=== PATIENT | male | born 1980 | race Caucasian/White ===

== ENCOUNTER 2021-06-25 19:46 | Emergency (ER) | payer OTHER, SELFPAY ==
[2021-06-25 19:52] VITALS: BP 139/102; PULSE 112; RESP 14; TEMP 36.9; O2SAT 97
--- NOTE | 2021-06-25 19:56 | ED.NAVMDI ---
HPI - Nausea/Vomiting/Diarrhea General Chief complaint: Nausea/Vomiting/Diarrhea Stated complaint: Vomiting Time Seen by Provider: 06/25/21 19:58 Source: patient and RN notes reviewed Mode of arrival: ambulatory Limitations: no limitations History of Present Illness HPI Narrative: 40-year-old male presents with concern for acute nausea, vomiting, diarrhea that started several hours ago. Reports he had a exam which is this morning he says could have made him sick. However he also reports he has had 2 family members with similar symptoms in the past several days. He denies abdominal pain, reports abdominal cramping. He MD elicited complaint: nausea, vomiting and diarrhea Related Data Home Medications Medication Instructions Recorded Confirmed alprazolam 0.5 mg PO BID 06/25/21 06/25/21 clonidine HCl 0.3 mg PO DAILY 06/25/21 06/25/21 paroxetine HCl [Paxil] 40 mg PO QAM 06/25/21 06/25/21 quetiapine 75 mg PO HS 06/25/21 06/25/21 risperidone [Risperdal] 0.5 mg PO HS 06/25/21 06/25/21 zolpidem 10 mg PO HS 06/25/21 06/25/21 Allergies Allergy/AdvReac Type Severity Reaction Status Date / Time BUPROPION HCL Allergy Unknown Hives / Uncoded 06/25/21 19:59 Red Face NAPROXEN SODIUM AdvReac Unknown Abdominal Uncoded 06/25/21 19:59 Pain Review of Systems Review of Systems: CONSTITUTIONAL: Denies malaise, chills, sweats, or fever. ENT: Denies rhinorrhea, congestion, sinus pain, otalgia or sore throat. CARDIOVASCULAR: Denies chest pain, palpitations, or edema. RESPIRATORY: Denies cough or dyspnea. GASTROINTESTINAL: Denies abdominal pain. Report nausea, vomiting, diarrhea GENITOURINARY: Denies dysuria or hematuria. MUSCULOSKELETAL: Denies myalgia. NEUROLOGIC: Denies headache. All systems reviewed & are unremarkable except as noted in HPI and below PMFSH Comments At time of signature, agree with nursing past medical, surgical, social and family history. There is no relevant family history pertinent to the presenting complaint Exam Narrative: GENERAL: Well-appearing, well-nourished, and in no acute distress. HEAD: Normocephalic, atraumatic. EYES: PERRLA, conjunctivae clear, and EOMI. ENT: Mucous membranes moist. NECK: Supple. No lymphadenopathy CHEST: Speaks in full sentences. No respiratory distress. HEART: Regular rate and rhythm. ABDOMEN: Soft, flat, nondistended. No guarding, rebound tenderness, or rigid. No pulsatilla masses. Bowel sounds present in all four quadrants. No organomegaly. Negative Sandoval?s sign. No periumbilical tenderness. No Supra public tenderness or distension. Good femoral pulses bilaterally. No hernia noted. No scars or surface trauma. SKIN: Warm, dry, no rash. NEURO: Alert and oriented x3. PSYCH: Normal mood and affect Course Course Emergency Course: Patient is aware of diagnosis, understands and agrees to treatment plan. Anticipatory guidance given. Patient agrees to follow-up as directed and is aware of reasons to seek care at the emergency department. Portions of this record may have been created with voice recognition software Level of Care: Express Care Visit Vital Signs Vital signs: Reviewed. MDM - Nausea/Vomiting/Diarrhea MDM Narrative Medical decision making narrative: No evidence of pancreatitis, AAA, cholecystitis, choledocholithiasis, cholangitis, mesenteric ischemia, small bowel obstruction, diverticulitis, colitis, appendicitis, or pelvic etiology such as ovarian/testicular torsion, TOA, or ectopic . Patient has no history of peptic ulcer, H. pylori, chronic aspirin NSAID or corticosteroid use, chronic alcohol use, no history of inflammatory bowel disease, no history of active abdominal infection or malignancy. Patient has no history of hernia or intra-abdominal surgeries, patient denies absence of flatus, constipation, melena, hematemesis. Patient denies post-prandial pain. No pain-out of proportion. Exam findings show no acute concerns or changes; patient is non-toxi
[2021-06-25 20:01] VITALS: BP 139/102; PULSE 112; RESP 14; TEMP 36.9; O2SAT 97
== END 2021-06-25 20:08 | disposition home or self-care (01) ==
PROVIDERS: Emergency Provider Nurse Practitioner; PCP Family Medicine
DX: R11.2 Nausea with vomiting, unspecified (principal); R19.7 Diarrhea, unspecified
CPT/HCPCS: 99203; G0463

== ENCOUNTER 2021-06-28 17:00 | Emergency (ER) | payer OTHER, SELFPAY ==
[2021-06-28 17:05] VITALS: BP 145/82; PULSE 86; RESP 18; TEMP 37.2; O2SAT 100
--- NOTE | 2021-06-28 17:05 | ED.NAVMDI ---
HPI - Nausea/Vomiting/Diarrhea General Chief complaint: Nausea/Vomiting/Diarrhea Stated complaint: Diarrhea/Abdominal Pain Time Seen by Provider: 06/28/21 17:00 Source: patient and RN notes reviewed History of Present Illness HPI Narrative: Patient is a 40-year-old male who presents the urgent care with complaints of abdominal pain and persistent diarrhea. Patient was seen at our facility on Friday and states that he was told by the provider to come back for antibiotics if his diarrhea did not stop . It was noted on patient's discharge instructions to go to the hospital for further evaluation if symptoms did not improve. Patient states has been taking the Zofran for the nausea and vomiting which is since resolved. Patient denies of any fevers. Denies of any known blood in the stool. Denies of any abdominal history. Patient is requesting a work note. 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 Patient states that he ate an egg and cheese breakfast burrito. Patient states that his symptoms have improved however he is still had approximately 6-8 loose stools over the last 24 hours. Patient states that the diarrhea was explosive before and has gotten much better . No other acute complaints. No acute distress noted. Patient read the plan of care. Some parts of this dictation were generated by voice recognition software and may contain typographical and/or grammatical inaccuracies. Related Data Home Medications Medication Instructions Recorded Confirmed alprazolam 0.5 mg PO BID 06/25/21 06/28/21 clonidine HCl 0.3 mg PO DAILY 06/25/21 06/28/21 paroxetine HCl [Paxil] 40 mg PO QAM 06/25/21 06/28/21 quetiapine 75 mg PO HS 06/25/21 06/28/21 risperidone [Risperdal] 0.5 mg PO HS 06/25/21 06/28/21 zolpidem 10 mg PO HS 06/25/21 06/28/21 Allergies Allergy/AdvReac Type Severity Reaction Status Date / Time BUPROPION HCL Allergy Unknown Hives / Uncoded 06/28/21 17:17 Red Face NAPROXEN SODIUM AdvReac Unknown Abdominal Uncoded 06/28/21 17:17 Pain Review of Systems Review of Systems: CONSTITUTIONAL: Denies fever, chills, or sweats. EYES: Denies visual changes, redness, or discharge. ENT: Denies rhinorrhea, congestion, sore throat, or otalgia. CARDIOVASCULAR: Denies chest pain, palpitations, or edema. RESPIRATORY: Denies cough or dyspnea. GASTROINTESTINAL: Reports of abdominal pain, intermittent nausea, and diarrhea GENITOURINARY: Denies dysuria or hematuria. SKIN: Denies rash or itching. MUSCULOSKELETAL: Denies back pain, joint pain, or myalgia. NEUROLOGIC: Denies headache, numbness, or weakness. All other systems reviewed are negative, except as documented in HPI. PMFSH Comments At the time of my signature, I reviewed and agree with the nursing past medical, surgical, social, and family history. There is no relevant family history pertinent to the patient complaint. Exam Narrative: GENERAL: This is a well-nourished, well-developed patient, in no apparent distress. HEAD: normocephalic, atraumatic. EYES: PERRL. Sclera clear/white. Vision is grossly intact. EARS: External ears normal NOSE: External nose normal with no obvious nasal discharge, nares without redness, no rhinorrhea. THROAT: Mucous membranes moist NECK: Neck supple CARDIOVASCULAR: Regular rate and rhythm without murmurs, gallops, or rubs. RESPIRATORY: Clear to auscultation. Breath sounds equal bilaterally. No wheezes, rales, or rhonchi. GASTROINTESTINAL: Abdomen soft, mild left upper quadrant tenderness, nondistended. Negative obturator. Negative Sandoval sign. No splenomegaly. Hyperactive bowel sounds. SKIN: warm, intact with no suspicious lesions or rash, good texture and turgor. NEURO: awake, alert, and oriented to person, place and time. There were no obvious focal neurologic abnormalities. EXTREMITIES: No clubbing, cyanosis, or edema. Course Course Level of Care: Cole Mcintyre
== END 2021-06-28 17:30 | disposition home or self-care (01) ==
PROVIDERS: Emergency Provider Nurse Practitioner Family; PCP Family Medicine
DX: R19.7 Diarrhea, unspecified (principal)
CPT/HCPCS: 99213; G0463

== ENCOUNTER 2023-01-08 13:25 | Emergency (ER) | payer OTHER, SELFPAY ==
[2023-01-08 13:30] VITALS: BP 148/97; PULSE 89; RESP 20; TEMP 36.8; O2SAT 99
--- NOTE | 2023-01-08 13:56 | ED.URI ---
HPI - URI/Sore Throat General Chief Complaint: Upper Respiratory Infection Stated Complaint: headache/fever/aches Time Seen by Provider: 01/08/23 13:40 Source: patient Mode of arrival: ambulatory Limitations: no limitations History of Present Illness HPI Narrative: Mr. Holguin is a 42-year-old male patient presenting to the clinic today with complaints of headache, fever, chills, body aches aches, sore throat, and congestion times 2 days. He reports his symptoms started on Friday. No known exposure to anybody with COVID, flu, or strep. 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 Patient denies any fever, chills, rash, headache, visual changes, dizziness, cough, shortness of breath, chest pain, palpitations, nausea, vomiting, diarrhea, constipation, abdominal pain, or any urinary issues. PMFSH Comments At the time of my signature, I reviewed and agree with the nursing past medical, surgical, social, and family history. There is no relevant family history pertinent to the patient complaint. Exam Narrative: General: Well-developed, well nourished, in no apparent distress Head: Normocephalic, atraumatic Eyes: Pupils equally round and reactive to light bilaterally, EOM intact, sclera and conjunctive clear, no discharge, lids normal Ears: TMs intact and congested, ear canals clear, no drainage, grossly hearing normal. Nose: Nares patent, clear nasal discharge, no inflammation, no sinus tenderness. Mouth: Oral pharynx red, swollen, with bilateral tonsillar enlargement without lesions or masses, good dentition, MMM. Neck: Supple, trachea midline, enlargement of anterior cervical nodes, no thyroid masses or goiter palpable. Cardio: Regular rate and rhythm, s1 and s2 normal, no murmur appreciated. Resp: Clear to auscultation bilaterally, no rhonchi, rales, wheezing or rubs Course Course Emergency Course: Portions of this record may have been created with voice recognition software. Level of Care: Express Care Visit Vital Signs Vital signs: Vital Signs Temperature 36.8 C 01/08/23 13:30 Pulse Rate 89 01/08/23 13:30 Respiratory Rate 20 01/08/23 13:30 Blood Pressure 148/97 H 01/08/23 13:30 Pulse Oximetry 99 01/08/23 13:30 Oxygen Delivery Room Air 01/08/23 13:30 Temperature 36.8 C 01/08/23 13:30 Pulse Rate 89 01/08/23 13:30 Respiratory Rate 20 01/08/23 13:30 Blood Pressure 148/97 H 01/08/23 13:30 Pulse Oximetry 99 01/08/23 13:30 Oxygen Delivery Room Air 01/08/23 13:30 Vital signs reviewed MDM - URI/Sore Throat MDM Narrative Medical decision making narrative: At the time of visit patient is resting on the exam table. COVID, influenza, and strep testing were performed. Patient is positive for COVID and strep. Influenza testing was negative. Will send in prescription for amoxicillin. Supportive measures were discussed with the patient regarding COVID and strep and he voiced understanding of the discharge instructions and agrees to treatment plan. Work note was given. Differential Diagnosis Differential diagnosis: Likely upper respiratory infection, otitis media, sinusitis, viral infection, bronchitis, influenza, pharyngitis and other (COVID) Discharge Plan Discharge Clinical Impression: COVID-19, Strep pharyngitis Patient Disposition: Home, Self-Care Condition: Stable Instructions: Antibiotic Form, Strep Throat (ED), COVID-19 (Coronavirus Disease 2019) (ED), How to Recover from COVID-19 at Home (ED) Additional Instructions: Strep screen was positive in the clinic today. COVID test was also positive in the clinic today. Inf
== END 2023-01-08 14:10 | disposition home or self-care (01) ==
PROVIDERS: Emergency Provider Nurse Practitioner Family; PCP Family Medicine
DX: U07.1 COVID-19 (principal); J02.0 Streptococcal pharyngitis
CPT/HCPCS: 87426; 87804; 87880; 99213; C9803; G0463

== ENCOUNTER 2023-12-29 15:06 | Outpatient (CLI) | payer OTHER, SELFPAY ==
[2023-12-29 18:50] LABS: Hemoglobin 14.7 g/dL (14.0-18.0); Mean Corpuscular HGB Conc 33.4 g/dl (32-36); Mean Corpuscular Hemoglobin 29.5 pg (26-34); Mean Corpuscular Volume 88.2 fl (80-100); Platelet Count Result 271 k/mm3 (150-375); Red Blood Count 4.99 M/mm3 (4.6-6.20); Red Cell Distribution Width 13.3 % (11.5-14.5)
[2023-12-29 19:34] LABS: Alanine Aminotransferase 44 U/L (6-50); Albumin Level 4.6 g/dL (3.5-5.1); Alkaline Phosphatase 112 U/L (38-126); Anion Gap 11 mmol/L (4-12); Aspartate Amino Transferase 80 U/L (17-59); Bilirubin,Total 0.7 mg/dL (0.2-1.3); Blood Urea Nitrogen 17 mg/dL (9-20); Calcium 9.6 mg/dL (8.4-10.2); Carbon Dioxide 30 mmol/L (22-30); Chloride 101 mmol/L (98-107); Cholesterol 105 mg/dL (0-200); Estimated Glomerular Filt Rate > 60; Glucose 123 mg/dL (65-110); HDL Direct 42 mg/dL; Potassium 3.5 mmol/L (3.4-5.0); Sodium 142 mmol/L (137-145); Triglycerides 84 mg/dL (<150)
[2023-12-29 19:41] LABS: LDL Cholesterol Direct 34 mg/dL
[2023-12-29 19:45] LABS: Vitamin D 25 Hydroxy 31.4 ng/mL
== END 2023-12-29 15:07 | disposition home or self-care (01) ==
PROVIDERS: PCP Nurse Practitioner Adult Health; Visit Provider Nurse Practitioner Adult Health
DX: Z13.9 Encounter for screening, unspecified (principal); E55.9 Vitamin D deficiency, unspecified
CPT/HCPCS: 36415; 80053; 80061; 82306; 84443; 85027

== ENCOUNTER 2024-01-21 14:06 | Outpatient (CLI) | payer OTHER, SELFPAY ==
[2024-01-21 20:44] LABS: Hemoglobin A1C 5.2 % (<5.7)
== END 2024-01-21 14:07 | disposition home or self-care (01) ==
LOC: ANHBWCLAB 14:08
PROVIDERS: PCP Nurse Practitioner Adult Health; Visit Provider Nurse Practitioner Adult Health
DX: R73.9 Hyperglycemia, unspecified (principal)
CPT/HCPCS: 36415; 83036

== ENCOUNTER 2024-03-16 13:34 | Outpatient (CLI) | payer OTHER, SELFPAY | END 2024-03-16 13:35 | disposition home or self-care (01) | PROVIDERS: PCP Nurse Practitioner Adult Health; Visit Provider Nurse Practitioner Adult Health | DX: I63.9 Cerebral infarction, unspecified (principal) | CPT/HCPCS: 36415; 81241; 81291 ==

== ENCOUNTER 2024-03-24 15:57 | Outpatient (CLI) | payer OTHER, SELFPAY ==
[2024-03-25 13:18] LABS: Homocysteine 11.1 umol/L (<11.4)
== END 2024-03-24 15:58 | disposition home or self-care (01) ==
LOC: ANHBWCLAB 15:58
PROVIDERS: PCP Nurse Practitioner Adult Health; Visit Provider Nurse Practitioner Adult Health
DX: Z15.89 Genetic susceptibility to other disease (principal)
CPT/HCPCS: 36415; 83090

== ENCOUNTER 2024-06-03 11:27 | Outpatient (CLI) | payer OTHER, SELFPAY ==
--- OUTSIDE RECORDS SUMMARY | 2024-06-03 12:26 | XMS_ITS | Clinical Summary ---
Author Organization [facility] Address [address] [address] Phone Care Team Providers Care Shipyard Painting Supervisor Name Role Phone Eyad Morin MD Primary Care Provider [phone] Allergies Active Allergy Reactions Criticality Noted Date Comments Bupropion Hcl Hives Medium 05/09/2016 Medications omeprazole (PRILOSEC) 20 MG CAPSULE DELAYED RELEASE Take 1 Cap by mouth daily. 90 Cap 3 05/09/19 17 Active Additional Information Patient not taking.Reported on 05/16/2021 PARoxetine (PAXIL) 40 MG Tablet Take 1 Tab by mouth daily. 90 Tab 0 07/27/19 17 Active ALPRAZolam (XANAX) 0.25 MG Tablet Take 1 Tab by mouth daily as needed. 30 Tab 0 08/19/19 17 Active fluticasone (FLONASE) 50 MCG/ACT Suspension 1-2 Sprays by Nasal route daily. 1-2 sprays each nostril daily for nasal congestion and allergies. 1 Bottle 3 08/06/19 17 Active Additional Information Patient not taking.Reported on 05/16/2021 Levocetirizine Dihydrochloride (XYZAL) 5 MG Tablet Take 1 Tab by mouth daily. 90 Tab 3 08/06/19 17 Active ibuprofen (MOTRIN) 800 MG Tablet Take 1 Tab by mouth every 8 hours. 30 Tab 0 10/07/19 17 Active HYDROcodone-acetami nophen (NORCO) 5-325 MG Tablet Take 1-2 Tabs by mouth every 4 hours as needed for Pain. 20 Tab 0 10/07/19 17 Active Additional Information Patient not taking.Reported on 05/16/2021 cloNIDine (CATAPRES) 0.3 MG Tablet Take 0.3 mg by mouth. 09/09/19 20 Active QUEtiapine (SEROquel) 25 MG Tablet Take 75 mg by mouth. 02/07/20 18 Active risperiDONE (RISPERDAL) 0.5 MG Tablet 05/14/19 22 Active zolpidem (AMBIEN) 10 MG Tablet 02/23/20 21 Active traMADol (ULTRAM) 50 MG TabletIndications:L ow back pain with left-sided sciatica Take 1 Tablet by mouth every 8 hours as needed for Moderate or more severe pain. 12 Tablet 04/29/20 23 Active Active Problems Problem Noted Date Diagnosed Date Elevated LFTs 06/09/2017 Prolonged posttraumatic stress disorder 10/18/19 17 Panic attack as reaction to stress 08/12/2016 Abnormal drug screen 08/06/2016 Overview (08/06/2016): Benzo prescribed, benzo undetected Depression 05/17/2016 Anxiety 05/09/2016 Insomnia 05/09/2016 Kidney stones 05/09/2016 Recurrent pain of right knee 05/09/2016 Overview (05/09/2016): Dr Wayne History of steroid shots Gastroesophageal reflux disease without esophagi tis 05/09/2016 Family History Medical History Relation Name Comments No Known Problems Father Thyroid Disease Mother No Known Problems Sister Relation Name Status Comments Father Alive Mother Alive Sister Alive Social History Tobacco Use Types Packs/Day Years Used Date Smoking Tobacco: Former Smokeless Tobacco: Current Chew Tobacco Cessation:Ready to Q uit: Not Asked; Counseling Given: Not Answered Alcohol Use Standard Drinks/Week Comments No 0 (1 standard drink = 0.6 oz pur e alcohol) Personal choice Sexually Active Control Partners Comments Not Currently Surgical Female vascetomy Sex and Gender Information Value Date Recorded Sex Assigned at Not on file Legal Sex Male 7:41 PM CDT Gender Identity Not on file Sexual Orientation Not on file Last Filed Vital Signs Vital Sign Reading Time Taken Comments Blood Pressure 116/76 04/29/2023 4:06 PM SENIOR FACILITIES MANAGER Pulse 88 04/29/2023 4:06 PM SENIOR FACILITIES MANAGER Temperature 36.4 ??C (97.6 ??F) 04/29/2023 11:[address] Respiratory Rate 18 04/29/2023 4:06 PM SENIOR FACILITIES MANAGER Oxygen Saturation 99% 04/29/2023 4:06 PM SENIOR FACILITIES MANAGER Inhaled Oxygen Concentration - - Weight 76.2 kg (168 lb) 04/29/2023 11:54 AM SENIOR FACILITIES MANAGER Height 177.8 cm (5' 10 ) 04/29/2023 11:54 AM SENIOR FACILITIES MANAGER Body Mass Index 24.11 04/29/2023 11:54 AM SENIOR FACILITIES MANAGER Plan of Treatment Health Maintenance Due Date Last Done Comments Hepatitis C Virus (HCV) Screening 1980 Hepatitis B Immunization (1 of 3 - 19+ 3-dose series) 07/12/1999 Influenza Immunization (#1) 01/04/202403/05, 03/19/2018, 02/11/2014, Additional history exists SARS-COV-2 Immunization ( season) 2024 Respiratory Syncytial Virus (RSV) Immunization (Adult) (1 - 1-dose 75+ series) 07/12/2055 TdaP Immunization Completed 12/03/2009 Meningococcal Immunization (ACWY) Aged Out No longer eligible based on patient's age to complete this topic Pneumococcal Immunization Combined Aged Out No longer eligible based on patient's age to complete this topic Rotavirus Immunization Aged Out No lo nger eligible based on patient's age to complete this topic Insurance [address] [place] [address] Care Teams Shipyard Painting Supervisor Relationship Specialty Start Date End Date Eyad Morin MD [address] [facility] [address] [address] [place] [id number] PCP - General Wind Tunnel Technician 04/29/23
--- OUTSIDE RECORDS SUMMARY | 2024-06-03 12:27 | XMS_ITS | Clinical Summary ---
Author Organization [facility]an Roman Address [address] [place] [address] Care Team Providers Care Guest Relations Representative Name Role Phone Unavailable Primary Care Provider Unavailabl e Allergies Active Allergy Reactions Criticality Noted Date Comments Bupropion Nausea and Vomiting,Blood Disorder Medium 0 06/03/2024 Naproxen Sodium Nausea and Vomiting,Blood Disorder Medium 06/03/2024 Medications ALPRAZolam (XANAX) 0.5 mg tablet Take 0.5 mg by mouth 1 time daily as needed for Anxiety. 05/13/2024 Active aspirin (ECOTRIN EC) 81 mg Tablet, Delayed Release (E.C.) Take 1 Tablet by mouth daily. 04/12/2024 Active Cholecalciferol , Vitamin D3, (VITAMIN D3) 10 mcg (400 unit) capsule Take 400 Units by mouth daily. Active ondansetron (ZOFRAN ODT) 8 mg Tablet, Rapid Dissolve Take 8 mg by mouth every 8 hours as needed for Nausea/Emesi s. 04/12/2024 Active traMADoL (ULTRAM) 50 mg tablet Take 50 mg by mouth 2 times daily as needed for Pain. 05/22/2024 Active zolpidem (AMBIEN) 10 mg tablet Take 10 mg by mouth nightly as needed for Insomnia. 05/30/2024 Active ticagrelor (BRILINTA) 60 mg Tablet Take 60 mg by mouth one time only. Active Active Problems No known active problems Encounters Date Type Department Care Team Description 06/03/2024 10:30 AM WOOD MILLER Office Visit [facility] Oncology and Hematology - [place] [address] [place] [address] Issa Porras MD Secondary hypercoagulable state (Primary Dx) from Last 3 Months Family History Medical History Relation Name Comments No Known Problems Child 1 No Known Problems Child 2 No Known Problems Father No Known Problems Mother No Known Problems Sister Relation Name Status Comments Child 1 Alive Child 2 Alive Father Alive Mother Alive Sister Alive Social History Tobacco Use Types Packs/Day Years Used Date Smoking Tobacco: Never Smokeless Tobacco: Current Chew Alcohol Use Standard Drinks/Week Comments Never 0 (1 standard drink = 0.6 oz pur e alcohol) Sex and Gender Information Value Date Recorded Sex Assigned at Not on file Legal Sex Male 12:50 PM WOOD MILLER Gender Identity Not on file Sexual Orientation Not on file Last Filed Vital Signs Vital Sign Reading Time Taken Comments Blood Pressure 138/96 06/03/2024 10:34 AM WOOD MILLER Pulse 72 06/03/2024 10:30 AM WOOD MILLER Temperature 36.2 ??C (97.2 ??F) 06/03/2024 10:[address] Respiratory Rate 17 06/03/2024 10:30 AM WOOD MILLER Oxygen Saturation 97% 06/03/2024 10:30 AM WOOD MILLER Inhaled Oxygen Concentration - - Weight 73.3 kg (161 lb 9.6 oz) 06/03/2024 10:30 AM WOOD MILLER Height 177.8 cm (5' 10 ) 06/03/2024 10:30 AM WOOD MILLER Body Mass Index 23.19 06/03/2024 10:30 AM WOOD MILLER Plan of Treatment Upcoming Encounters Date Type Department Care Team (Late st Contact Info) Description 06/17/2024 4:30 PM WOOD MILLER Telephone Check Up [facility] Oncology and Hematology - [place] [address] [facility] [address] [place] [address] Issa Porras MD [address] [facility] [address] [place] [address] Health Maintenance Due Date Last Done Comments HEPATITIS B VACCINES (1 of 3 - 19+ 3-dose series) 07/12/1999 DTAP/TDAP/TD VACCINES (2 - T d or Tdap) 12/04/2019 12/03/2009 INFLUENZA VACCINE (#1) 2023 8, 02/11/2014 Preventative Visit- Commercial 05/05/2024 HPV VACCINES Aged Out No longer eligi ble based on patient's age to complete this topic Insurance [employer] [facility] OPEN ACCESS
--- OUTSIDE RECORDS SUMMARY | 2024-06-03 12:27 | XMS_ITS | Referral Summary ---
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 Monitor Report. ?? INDICATIONS: I61.9 Nontraumatic intracerebral hemorrhage, unspecified. ?? FINDINGS: ?? CONCLUSIONS: 1. Predominant rhythm is normal sinus rhythm with a minimum heart rate of 41 beats per minute in sinus and a maximum heart rate of 152 beats per minute also in sinus. Average heart rate of 65 beats per minute. Total monitoring time of 28 days 4 hours 8 minutes. 2. No prolonged pauses. 3. Rare PACs with 496 PACs amounting to less than 1% of total beats. 4. Rare PVCs with 170 PVCs amounting to less than 1% total beats. 5. There were 5 patient activated events with only 1 associated with feeling tired/fatigued. All noted to be in sinus rhythm ranging in heart rate from 67-102 beats per minute with no significant findings. Electronically Signed By: Dr Cleveland Neff 04/26/2024 2:58:10 PM PRODUCT CONTROLLER Procedure Note Cleveland Neff MD - 04/26/[address] [place] [address] EVENT MONITOR Patient Name: DANTE LOPEZ S : 1980 Study Date: 03/18/2024 1:30:00 PM Gender: M Tech: Ref Provider: VIDYA KELLEY Height(Cm): BSA: Weight(Kg): Order Provider: VIDYA KELLEY - PROCEDURES: Event Report: Event Monitor Report. INDICATIONS: I61.9 Nontraumatic intracerebral hemorrhage, unspecified. FINDINGS: CONCLUSIONS: 1. Predominant rhythm is normal sinus rhythm with a minimum heart rate of41 beats per minute in sinus and a maximum heart rate of 152 beats per minute also insinus. Average heart rate of 65 beats per minute. Total monitoring time of 28 days 4 hours 8 minutes. 2. No prolonged pauses. 3. Rare PACs with 496 PACs amounting to less than 1% of total beats. 4. Rare PVCs with 170 PVCs amounting to less than 1% total beats. 5. There were 5 patient activated events with only 1 associated withfeeling tired/fatigued. All noted to be in sinus rhythm ranging in heart rate from 67-102 beatsper minute with no significant findings. Electronically Signed By: Dr Cleveland Neff 04/26/2024 2:58:10 PM PRODUCT CONTROLLER us Vidya Kelley Jr., MD [facility] PROCEDURES Final Result * MRI Cervical Spine WO Contrast (03/17/2024 3:27 PM PRODUCT CONTROLLER) Anatomical Region Laterality Modality Spine N/A Magnetic Resonan ce 03/17/2024 4:54 PM PRODUCT CONTROLLER Narrative 03/17/2024 5:08 PM PRODUCT CONTROLLER EXAM DESCRIPTION: ?? MRI CERVICAL SPINE WO CONTRAST REASON FOR STUDY: ?? Myelopathy, acute, cervical spine, To rule out cervical stenosis ?? Left side numbness yesterday Hx of bonita 03/04/2024 ?? TECHNIQUE: Sagittal and Axial imaging includes T1, T2, STIR and gradient echo sequences. ? COMPARISON: ?? Cervical spine MRI 04/18/2017 CTA head and neck 03/24/2024 FINDINGS: ALIGNMENT: ?? Unchanged partial straightening of the cervical lordosis. VERTEBRAE: ?? Vertebral body height is maintained. ??Marrow signal is within normal limits for age. DISCS: ?? Disc height loss at several levels most apparent at C3-C4. HARDWARE: ?? Intervertebral disc prosthesis at C5-C6. CORD: ?? Normal in size and signal intensity. INDIVIDUAL LEVELS: C1-C2: ?? No significant spinal stenosis. C2-C3: ?? No significant disc bulge. No significant spinal canal or neural foraminal stenosis. C3-C4: ?? Disc osteophyte complex slightly narrowing the right lateral recess indenting the cord. ??No significant spinal canal or neural foraminal stenosis. C4-C5: ?? Disc osteophyte complex with central disc protrusion indenting the cord. ??No significant spinal canal or neural foraminal stenosis. ?? C5-C6: ?? Postoperative level with disc osteophyte complex narrowing the lateral recesses and slightly indenting the cord. Mild spinal canal stenosis. ?? Vlbg-ei-ykzaubuu bilateral neural foraminal stenosis. C6-C7: ?? Small left paracentral disc protrusion narrowing the ventral CSF space. ??No significant spinal canal or neural foraminal stenosis. ?? C7-T1: ?? No significant disc bulge. No significant spinal canal or neural foraminal stenosis. BASE OF BRAIN: ?? No significant finding. UPPER THORACIC: ?? Incompletely imaged. No significant spinal stenosis or foraminal stenosis. OTHER: ?? No other significant finding. IMPRESSION: C5-C6 intervertebral disc prosthesis with disc osteophyte complex causing mild spinal canal and wbxo-gn-dxtekzlw bilateral neural foraminal stenosis. Otherwise mild cervical degenerative changes with no significant spinal canal or neural foraminal stenosis. THIS IS AN ELECTRONICALLY VERIFIED FINAL REPORT 03/17/2024 5:08 PM - Electronically signed by ??Efrain Costa M.D. AG: GREGG D: ??03/17/2024 5:08 PM T: ??03/17/2024 5:08 PM Report ID: [id number] Reading Location: ??[id number] Procedure Note Efrain Costa MD - 03/17/2024 EXAM DESCRIPTION: MRI CERVICAL SPINE WO CONTRAST REASON FOR STUDY: Myelopathy, acute, cervical spine, To rule outcervical stenosis Left side numbness yesterday Hx of stoke 03/04/2024 TECHNIQUE: Sagittal and Axial imaging includes T1, T2, STIR and gradientecho sequences. COMPARISON: Cervical spine MRI 04/18/2017 CTA head and neck 03/24/2024 FINDINGS: ALIGNMENT: Unchanged partial straightening of the cervical lordosis. VERTEBRAE: Vertebral body height is maintained. Marrow signal is within normal limits for age. DISCS: Disc height loss at several levels most apparent at C3-C4. HARDWARE: Intervertebral disc prosthesis at C5-C6. CORD: Normal in size and signal intensity. INDIVIDUAL LEVELS: C1-C2: No significant spinal stenosis. C2-C3: No significant disc bulge. No significant spinal canal or neural foraminal stenosis. C3-C4: Disc osteophyte complex slightly narrowing the right lateralrecess indenting the cord. No significant spinal canal or neural foraminalstenosis. C4-C5: Disc osteophyte complex with central disc protrusion indentingthe cord. No significant spinal canal or neural foraminal stenosis. C5-C6: Postoperative level with disc osteophyte complex narrowing the lateral recesses and slightly indenting the cord. Mild spinal canalstenosis. Iazq-ai-qlzgfdsy bilateral neural foraminal stenosis. C6-C7: Small left paracentral disc protrusion narrowing the ventral CSF space. No significant spinal canal or neural foraminal stenosis. C7-T1: No significant disc bulge. No significant spinal canal or neural foraminal stenosis. BASE OF BRAIN: No significant finding. UPPER THORACIC: Incompletely imaged. No significant spinal stenosis or foraminal stenosis. OTHER: No other significant finding. IMPRESSION: C5-C6 intervertebral disc prosthesis with disc osteophyte complex causing mild spinal canal and czoe-hc-gghxedfo bilateral neural foraminalstenosis. Otherwise mild cervical degenerative changes with no significant spinalcanal or neural foraminal stenosis. THIS IS AN ELECTRONICALLY VERIFIED FINAL REPORT 03/17/2024 5:08 PM - Electronically signed by Efrain Costa M.D. AG: GREGG Report ID: [id number] Reading Location: [place] [address] us Lucinda Granados DE [facility] IMG MRI PROCEDURES Final Re sult * MRI Brain WO Contrast (03/17/2024 3:27 PM PRODUCT CONTROLLER) Anatomical Region Laterality Modality Head and Neck N/A Magnetic Resonan ce 03/17/2024 4:36 PM PRODUCT CONTROLLER Narrative 03/17/2024 4:53 PM PRODUCT CONTROLLER EXAM DESCRIPTION: ?? MRI BRAIN WO CONTRAST REASON FOR STUDY: ?? Possible stroke ?? Left side numbness that started yesterday ?? Hx of stoke 03/04/2024 ?? TECHNIQUE: Multiplanar imaging includes non-contrasted T1, T2, FLAIR, and diffusion with ADC map sequences. Additional sequence(s) sensitive to blood products. Images stored on PACS. ? COMPARISON: ?? Head CT and CTA head and neck 03/24/2024 ??brain MRI 03/05/2024 FINDINGS: CEREBRUM: No acute intracranial hemorrhage or mass effect. ??Redemonstrated large area of right middle cerebral artery territory encephalomalacia with chronic blood degradation products and few areas of cortical laminar necrosis medially compatible with chronic infarct. WHITE MATTER: ?? Elsewhere in the brain there are occasional tiny foci of nonspecific white matter change. POSTERIOR FOSSA: ?? Brainstem and cerebellum appear unremarkable. DIFFUSION IMAGING: No acute infarct identified. ??Persistent small focus of diffusion hyperintensity in the right connolly radiata with isointense to subtle hypointense corresponding ADC signal that is most suggestive of evolving subacute infarct. EXTRAAXIAL SPACES: ?? No hemorrhage. ??No abnormal extra-axial fluid collection. BRAIN VOLUME: ?? Within normal limits for age. PITUITARY: ?? Unremarkable. VASCULATURE: ?? No flow disturbance identified. ORBITS: ?? No masses. Globes normal. PARANASAL SINUSES AND MASTOIDS: ?? Moderate scattered paranasal sinus mucosal thickening. ??Mastoid air cells are well aerated. OTHER: ?? No other significant finding. IMPRESSION: No acute intracranial hemorrhage or acute infarct. Persistent small focus of diffusion hyperintensity in the right connolly radiata in keeping with an evolving subacute to chronic infarct. Chronic right MCA territory infarct. THIS IS AN ELECTRONICALLY VERIFIED FINAL REPORT 03/17/2024 4:53 PM - Electronically signed by ??Efrain Costa M.D. AG: AG D: ??03/17/2024 4:53 PM T: ??03/17/2024 4:53 PM Report ID: [id number] Reading Location: ??[id number] Procedure Note Efrain Costa MD - 03/17/2024 EXAM DESCRIPTION: MRI BRAIN WO CONTRAST REASON FOR STUDY: Possible stroke Left side numbness that started yesterday Hx of stoke 03/04/2024 TECHNIQUE: Multiplanar imaging includes non-contrasted T1, T2, FLAIR, and diffusion with ADC map sequences. Additional sequence(s) sensitive Sentilla. Images stored on PACS. COMPARISON: Head CT and CTA head and neck 03/24/2024 brain MRI03/05/2024 FINDINGS: CEREBRUM: No acute intracranial hemorrhage or mass effect. Redemonstrated large area of right middle cerebral artery territory encephalomalacia with chronic blood degradation products and few areas of cortical laminarnecrosis medially compatible with chronic infarct. WHITE MATTER: Elsewhere in the brain there are occasional tiny foci of nonspecific white matter change. POSTERIOR FOSSA: Brainstem and cerebellum appear unremarkable. DIFFUSION IMAGING: No acute infarct identified. Persistent small focus of diffusion hyperintensity in the right connolly radiata with isointense tosubtle hypointense corresponding ADC signal that is most suggestive of evolving subacute infarct. EXTRAAXIAL SPACES: No hemorrhage. No abnormal extra-axial fluidcollection. BRAIN VOLUME: Within normal limits for age. PITUITARY: Unremarkable. VASCULATURE: No flow disturbance identified. ORBITS: No masses. Globes normal. PARANASAL SINUSES AND MASTOIDS: Moderate scattered paranasal sinusmucosal thickening. Mastoid air cells are well aerated. OTHER: No other significant finding. IMPRESSION: No acute intracranial hemorrhage or acute infarct. Persistent small focus of diffusion hyperintensity in the right connolly radiata in keeping with an evolving subacute to chronic infarct. Chronic right MCA territory infarct. THIS IS AN ELECTRONICALLY VERIFIED FINAL REPORT 03/17/2024 4:53 PM - Electronically signed by Efrain Costa M.D. AG: AG Report ID: [id number] Reading Location: [id number] Miguel Angel Gill MD IMG MRI PROCEDURES Final Res ult * Troponin T high-sensitivity 6-hour (03/16/2024 11:12 PM PRODUCT CONTROLLER) Trop T hs 7 <=22 ng/L Comment: Interpretive Data For further hscTnT resources including the diagnostic algorithm and an aid in interpretation, copy and paste this link: https://nrl.Spiration.org/show/hsTrop Current Interpretive Data last revised 2020. Trop T hs delta 1 ng/L [facility] ([facility]) Trop T hs interp Insignificant [facility] ([facility]) Blood 03/16/2024 11:1 2 PM PRODUCT CONTROLLER 03/16/2024 11:14 PM PRODUCT CONTROLLER Miguel Angel Gill MD LAB BLOOD ORDERABLES Final R esult [facility] ([facility]ENDR[facility]) [facility] Department [place] [address] * Troponin T high-sensitivity 4-hour (03/16/2024 8:57 PM PRODUCT CONTROLLER) Trop T hs 7 <=22 ng/L Comment: Interpretive Data For further hscTnT resources including the diagnostic algorithm and an aid in interpretation, copy and paste this link: https://nrl.Spiration.org/show/hsTrop Current Interpretive Data last revised 2020. Trop T hs delta 1 ng/L [facility] ([facility]) Trop T hs interp Insignificant [facility] ([facility]) Blood 03/16/2024 8:57 PM PRODUCT CONTROLLER 03/16/2024 9:00 PM PRODUCT CONTROLLER us Miguel Angel Gill MD LAB BLOOD ORDERABLES Final R esult [facility] ([facility]ELY[facility]) [facility] Department [place] [address] * MO CRITICAL CARE ILL/INJURED PATIENT INIT 30-74 MIN (03/16/2024 8:46 PM PRODUCT CONTROLLER) Narrative Miguel Angel Gill MD - 03/16/2024 8:46 PM PRODUCT CONTROLLER Miguel Angel Gill MD ? 03/16/2024 ??8:47 PM Critical Care Performed by: Miguel Angel Gill MD Authorized by: Miguel Angel Gill MD ?? Critical care provider statement: As reflected in the history, physical exam, orders, notes, and/or MDM, I was personally present while the patient was critically ill and provided critical care services for 40 minutes, excluding time involved in separately billable procedures. ??Critical care was necessary to treat or prevent imminent or life-threatening deterioration of the following condition(s): ?? acute cerebrovascular accident (CVA) ??Critical care was time spent by me providing the following: ? decision regarding acute lytic therapy and initiation of stroke management ?? I provided emergent necessary critical care medicine services to this patient. I ordered and reviewed test results and/or imaging studies. I spent time discussing the management of this critically ill patient with consultants and the medical staff. us Miguel Angel Gill MD IN CLINIC/BEDSIDE ORDERABLES Final Result * Troponin T high-sensitivity 2-hour (03/16/2024 7:37 PM PRODUCT CONTROLLER) Trop T hs 8 <=22 ng/L Comment: Interpretive Data For further hscTnT resources including the diagnostic algorithm and an aid in interpretation, copy and paste this link: https://nrl.testcatalog.org/show/hsTrop Current Interpretive Data last revised 2020. Trop T hs delta 2 ng/L [facility] ([facility]) Trop T hs interp Insignificant [facility] ([facility]) Blood 03/16/2024 7:37 PM PRODUCT CONTROLLER 03/16/2024 7:41 PM PRODUCT CONTROLLER us Miguel Angel Gill MD LAB BLOOD ORDERABLES Final R esult [facility] (BR[facility]ELYN) [facility] Department [place] [address] * CTA Head Neck W WO Contrast (03/16/2024 6:04 PM PRODUCT CONTROLLER) Anatomical Region Laterality Modality Head and Neck N/A Computed Tomogra phy 03/16/2024 6:10 PM PRODUCT CONTROLLER Narrative 03/16/2024 6:23 PM PRODUCT CONTROLLER EXAM DESCRIPTION: ?? CTA HEAD NECK W WO CONTRAST REASON FOR STUDY: Acute left-sided numbness extending to the left leg and left face beginning today at 1400. ??No provided history of trauma. No further provision of past medical history. ??No provided past surgical history. 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 TECHNIQUE: Axial dynamic scanning technique with dynamic contrast enhancement through the intracranial and extracranial carotid and vertebral arteries. Multiplanar reconstruction. All stenosis measurements are based on NASCET criteria. ??3D MIP images rendered on scanning unit and reviewed at time of interpretation. Automated exposure control was used as a dose optimization technique for this examination. CONTRAST TYPE/DOSE: ?? 100 mL Optiray 350 ??injected via ?? peripheral IV site without reported incident. COMPARISON: ?? CT head without contrast performed shortly prior to this study, 03/04/2024, 12/06/2023, 12/04/2023, 12/02/2023, and 12/01/2023; CT head without and CTA head/neck 12/01/2023 FINDINGS: BRAIN: No gross evidence of acute intracranial process, noting redemonstration of multifocal encephalomalacia with surrounding gliosis about the right cerebral architecture consistent with sequelae of prior infarct in a right MCA distribution. ??Please reference CT head performed shortly prior to this study for non angiographic intracranial findings. INTRACRANIAL VESSELS [place]: ?? The anterior, middle, posterior cerebral arteries are all patent. ??No focal stenosis. ??No aneurysm. POSTERIOR CIRCULATION: ?? The distal vertebral arteries are patent as is the basilar artery. No aneurysm. BRAIN: ?? No gross evidence of enhancing intracranial lesions. CAROTID CTA RIGHT CAROTIDS: ?? No occlusion, stenosis, or evidence of dissection of the right carotid arterial system, noting patent mid through distal cervical segment right ICA stent. LEFT CAROTIDS: ?? No occlusion, stenosis, or evidence of dissection of the left carotid arterial system. ?? LEFT VERTEBRAL: ?? Patent without evidence of stenosis or dissection. RIGHT VERTEBRAL: ?? Patent without evidence of stenosis or dissection. AORTIC ARCH: ?? Three-vessel aortic arch. ??Patent subclavian arteries. NECK SOFT TISSUE: ?? No acute abnormality. ??No thyroid nodule greater than 1 cm. ?? C5-6 intervertebral replacement disc. INCLUDED LUNGS: ?? No acute abnormality. OTHER: ?? No other significant finding. IMPRESSION: 1. ?? No gross evidence of acute intracranial process, noting redemonstration of multifocal encephalomalacia with surrounding gliosis about the right cerebral architecture consistent with sequelae of prior infarct in a right MCA distribution. ??Please reference CT head performed shortly prior to this study for non angiographic intracranial findings. 2. ?? If clinical concern for acute ischemia/infarct, MRI of the brain without contrast can be performed for further evaluation. 3. ?? No occlusion, focal stenosis, or aneurysm of the intracranial arterial vasculature. 4. ?? No occlusion, stenosis, or dissection of the cervical arterial vasculature, noting patent right ICA stent. THIS IS AN ELECTRONICALLY VERIFIED FINAL REPORT 03/16/2024 6:23 PM - Electronically signed by ??Melecio Rivera M.D. SMITH: SMITH D: ??03/16/2024 6:23 PM T: ??03/16/2024 6:23 PM Report ID: [id number] Reading Location: ??[id number] Procedure Note Melecio Rivera MD - 03/16/2024 EXAM DESCRIPTION: CTA HEAD NECK W WO CONTRAST REASON FOR STUDY: Acute left-sided numbness extending to the left leg andleft face beginning today at 1400. No provided history of trauma. No further provision of past medical history. No provided past surgical history. 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 TECHNIQUE: Axial dynamic scanning technique with dynamic contrastenhancement through the intracranial and extracranial carotid and vertebral arteries. Multiplanar reconstruction. All stenosis measurements are based on NASCET criteria. 3D MIP images rendered on scanning unit and reviewed at time of interpretation. Automated exposure control was used as a dose optimization technique forthis examination. CONTRAST TYPE/DOSE: 100 mL Optiray 350 injected via peripheral IVsite without reported incident. COMPARISON: CT head without contrast performed shortly prior to thisstudy, 03/04/2024, 12/06/2023, 12/04/2023, 12/02/2023, and 12/01/2023; CT head without and CTA head/neck 12/01/2023 FINDINGS: BRAIN: No gross evidence of acute intracranial process, notingredemonstration of multifocal encephalomalacia with surrounding gliosis about the right cerebral architecture consistent with sequelae of prior infarct in a rightMCA distribution. Please reference CT head performed shortly prior to thisstudy for non angiographic intracranial findings. INTRACRANIAL VESSELS [place]: The anterior, middle, posterior cerebral arteries areall patent. No focal stenosis. No aneurysm. POSTERIOR CIRCULATION: The distal vertebral arteries are patent as isthe basilar artery. No aneurysm. BRAIN: No gross evidence of enhancing intracranial lesions. CAROTID CTA RIGHT CAROTIDS: No occlusion, stenosis, or evidence of dissection of the right carotid arterial system, noting patent mid through distal cervical segment right ICA stent. LEFT CAROTIDS: No occlusion, stenosis, or evidence of dissection of theleft carotid arterial system. LEFT VERTEBRAL: Patent without evidence of stenosis or dissection. RIGHT VERTEBRAL: Patent without evidence of stenosis or dissection. AORTIC ARCH: Three-vessel aortic arch. Patent subclavian arteries. NECK SOFT TISSUE: No acute abnormality. No thyroid nodule greater than1 cm. C5-6 intervertebral replacement disc. INCLUDED LUNGS: No acute abnormality. OTHER: No other significant finding. IMPRESSION: 1. No gross evidence of acute intracranial process, notingredemonstration of multifocal encephalomalacia with surrounding gliosis about the right cerebral architecture consistent with sequelae of prior infarct in a rightMCA distribution. Please reference CT head performed shortly prior to thisstudy for non angiographic intracranial findings. 2. If clinical concern for acute ischemia/infarct, MRI of the brainwithout contrast can be performed for further evaluation. 3. No occlusion, focal stenosis, or aneurysm of the intracranialarterial vasculature. 4. No occlusion, stenosis, or dissection of the cervical arterial vasculature, noting patent right ICA stent. THIS IS AN ELECTRONICALLY VERIFIED FINAL REPORT 03/16/2024 6:23 PM - Electronically signed by Melecio Rivera M.D. SMITH: SMITH Report ID: [id number] Reading Location: [place] [address] Miguel Angel Gill MD IMG CT PROCEDURES Final Resu lt * ECG 12 lead (03/16/2024 5:22 PM PRODUCT CONTROLLER) 03/16/2024 5:22 PM PRODUCT CONTROLLER Narrative [facility] - 03/17/2024 8:03 AM PRODUCT CONTROLLER Vent Rate: 74 bpm RR Interval: 801 msec MO Interval: 167 msec QRS Duration: 102 msec QT Interval: 357 msec QTC Interval: 385 msec P-R-T Pearce: 59 - 32 - 35 degrees IMPRESSION: SINUS RHYTHM WITH SINUS ARRHYTHMIA NORMAL ECG NO CHANGE FROM PREVIOUS TRACING NOTED Electronically Signed By: Phillip Gallagher MD Miguel Angel Gill MD ECG ORDERABLES Final Result [facility] * CT Stroke Head WO Contrast (03/16/2024 5:09 PM PRODUCT CONTROLLER) Anatomical Region Laterality Modality Head N/A Computed Tomogra phy 03/16/2024 5:11 PM PRODUCT CONTROLLER Narrative 03/16/2024 5:17 PM PRODUCT CONTROLLER EXAM DESCRIPTION: CT STROKE HEAD WO CONTRAST REASON FOR STUDY: ?? Left side numbness that started at 1400 hours and then to his left leg and side of face ??Hx of stoke 03/04/2024 ?? TECHNIQUE: Axial images acquired through the brain without intravenous contrast. ??Images stored on PACS. ?? Automated exposure control was used as a dose optimization technique for this examination. COMPARISON: 03/04/2024 FINDINGS: BRAIN: ?? No hemorrhage, edema or mass effect. No recent infarct. ? Periventricular microvascular white matter ischemic change. ??Old infarct with encephalomalacia right middle cerebral artery distribution, unchanged compared with 03/04/2024. ??Old infarcts involving the right head of the caudate nucleus and the right lentiform nucleus. ??No CT evidence of acute infarct. ? EXTRA-AXIAL SPACES: ?? No fluid collections. No masses. CALVARIUM: ?? No fracture. SINUSES/MASTOIDS: ?? Mucosal thickening in the bilateral maxillary and sphenoid sinuses with fluid and or mucosal thickening in the ethmoid air cells. ORBITS: ?? No significant abnormality. OTHER: ?? Right internal carotid artery stent is unchanged. IMPRESSION: No acute intracranial findings. ?? The findings were called to the ordering clinician by CR support services at 5:18 p.m. on 03/16/2024. THIS IS AN ELECTRONICALLY VERIFIED FINAL REPORT 03/16/2024 5:17 PM - Electronically signed by ??Danish Michelle M.D. KT: ALESIA D: ??03/16/2024 5:17 PM T: ??03/16/2024 5:17 PM Report ID: [id number] Reading Location: ??[id number] Procedure Note Danish Michelle MD - 03/16/2024 EXAM DESCRIPTION: CT STROKE HEAD WO CONTRAST REASON FOR STUDY: Left side numbness that started at 1400 hours and then to his left leg and side of face Hx of stoke 03/04/2024 TECHNIQUE: Axial images acquired through the brain without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 Electronically Signed By: Dr Cleveland Neff 2024-03-08 11:28:59 PRODUCT CONTROLLER Lucinda Granados NP CV ECHO PROCEDURES Final Re sult * Hemoglobin A1c (03/06/2024 4:40 AM CDT) Hgb A1C 5.3 4.0 - 5.6 % Estimated Average Glucose 105 mg/dL [facility]BRAMS (BRICELYN) Comment: The ADA recommends reporting an estimated Average Glucose (eAG) with all Hemoglobin A1c results using the equation derived from a study of 507 normal and diabetic adults. ??Minority populations were underrepresented and children were not included. ?? (Diabetes Care 31:0587-0188, 2008). ??The eAG is not equivalent to a fasting glucose. Blood 03/06/2024 4:40 AM CDT 03/06/2024 5:45 AM CDT Lucinda Granados NP LAB BLOOD ORDERABLES Final Result LEESA ABRAMS (BRICELYN) 1 [facility] Department [place] [address] * Lipid panel (03/06/2024 4:40 AM CDT) [facility] Signature Cholesterol 103 30 - 199 mg/dL Comment: Interpretive Data Ages < or = 19 years ??Acceptable: ? <170 mg/dL ??Borderline high: ??170-199 mg/dL ??High: ? >or= 200 mg/dL Ages > or = 20 years ??Desirable: ?<200 mg/dL ??Borderline high: ??200-239 mg/dL ??High: ? >or= 240 mg/dL Literature References: 1. Expert Panel on Integrated Guidelines for Cardiovascular Health and Risk Reduction in Children and Adolescents. Pediatrics 2011;128:S213 2. NCEP Expert Panel. Circulation 2004;110:227 Current Interpretive Data was last revised on 2017. Triglycerides 78 <=149 mg/dL LEESA ABRAMS (DEVENDRA) Comment: Interpretive Data Ages < or = 9 years ??Acceptable: ? <75 mg/dL ??Borderline high: ??75-99 mg/dL ??High: ? >or= 100 mg/dL Ages 10 to 20 years ??Acceptable: ? <90 mg/dL ??Borderline high: ??90-129 mg/dL ??High: ? >or= 130 mg/dL Ages > or = 20 years ??Desirable: ?<150 mg/dL ??Borderline high: ??150-199 mg/dL ??High: ? 200-499 mg/dL ?Very high: ?? >or= 499 mg/dL Literature References: 1. Expert Panel on Integrated Guidelines for Cardiovascular Health and Risk Reduction in Children and Adolescents. Pediatrics 2011;128:S213 2. NCEP Expert Panel. Circulation 2004;110:227 Current Interpretive Data was last revised on 2017. HDL 40 >=40 mg/dL LEESA WASSERMAN) Comment: Interpretive Data Ages < or = 19 years ??Acceptable: ? >45 mg/dL ??Borderline low: ?? 40-45 mg/dL ??Low: ? <40 mg/dL Ages > or = 20 years ??Desirable: ?>or= 60 mg/dL ??Low: ? <40 mg/dL Literature References: 1. Expert Panel on Integrated Guidelines for Cardiovascular Health and Risk Reduction in Children and Adolescents. Pediatrics 2011;128:S213 2. NCEP Expert Panel. Circulation 2004;110:227 Current Interpretive Data was last revised on 2017. LDL, calculated 47 <=129 mg/dL LEESA ABRAMS (DEVENDRA) Comment: Interpretive Data Ages < or = 19 years ??Acceptable: ? <110 mg/dL ??Borderline high: ??110-129 mg/dL ??High: ?>or= 130 mg/dL Ages > or = 20 years ??Optimal: ? <100 mg/dL ??Near optimal: ?100-129 mg/dL ??Borderline high: ?? 130-159 mg/dL ??High: ?>160 mg/dL Calculated using the David LDL-C estimating equation. This equation was implemented on 2023. Prior to this date LDL-C was estimated using the Friedewald equation. Literature References: 1. Expert Panel on Integrated Guidelines for Cardiovascular Health and Risk Reduction in Children and Adolescents. Pediatrics 2011;128:S213 2. NCEP Expert Panel. Circulation 2004;110:227 3. David Dumont et al. DIETER Cardiol. 2020 September 02;5(5):540-548. doi: 10.1001/[email or web address] Current Interpretive Data was last revised on 2023. Non-HDL Cholesterol 63 mg/dL LEESA ABRAMS (DEVENDRA) Comment: Interpretive Data Ages < or = 19 years ??Acceptable: ?<120 mg/dL ??Borderline high: ??120-144 mg/dL ??High: ?>145 mg/dL Ages > or = 20 years ??When triglycerides are >200 mg/dL, Non-HDL cholesterol is a secondary target of ? therapy with treatment goals that are 30 mg/dL greater than the LDL cholesterol target. ? Literature References: 1. Expert Panel on Integrated Guidelines for Cardiovascular Health and Risk Reduction in Children and Adolescents. Pediatrics 2011;128:S213 2. NCEP Expert Panel. Circulation 2004;110:227 Current Interpretive Data was last revised on 2017. Chol/HDL ratio 3 ANABELLA ABRAMS (BRICELYN) Blood 03/06/2024 4:40 AM CDT 03/06/2024 5:45 AM CDT us Lucinda Granados NP LAB BLOOD ORDERABLES Final Result LEESA ABRAMS (BRICELYN) 1 [facility] Department [place] [address] * MRI Brain W WO Contrast (03/05/2024 9:40 AM CDT) Anatomical Region Laterality Modality Head and Neck N/A Magnetic Resonan ce 03/05/2024 9:59 AM CDT Narrative 03/05/2024 10:19 AM CDT EXAM DESCRIPTION: ?? MRI BRAIN W WO CONTRAST REASON FOR STUDY: ?? Headache, new or worsening, neuro deficit (Age 19-49y), recent stent carotid ?? Dizziness, right facial numbness, and bilateral leg numbness since ?? approximately 1500 yesterday ??Hx of stroke and stents in neck ? TECHNIQUE: Multiplanar imaging includes noncontrast T1, T2, FLAIR, diffusion with ADC map and post contrast T1 sequences. Additional sequence(s) sensitive to blood products. ??Images stored on PACS. ? CONTRAST TYPE/DOSE: ?? 17mL of GADOTERATE MEGLUMINE 0.5 MMOL/ML INTRAVENOUS SOLUTION (SO) ??injected via ?? intravenous COMPARISON: ?? CT angiography from 03/04/2024. ??Head CT from 12/06/2023 FINDINGS: CEREBRUM: ?? No hemorrhage, edema, or mass effect. ??There is a large area of right middle cerebral artery territory encephalomalacia with associated gliosis. ??There is mild linear T1 hyperintensity about the margins of the medial aspect of the infarcts, likely cortical laminar necrosis, without definite superimposed enhancement. ??There are chronic blood degradation products in the encephalomalacia territory. WHITE MATTER: ?? Gliosis as above. ??Minimal periventricular white matter hypoattenuation, which may be chronic microvascular ischemic type change but is nonspecific. POSTERIOR FOSSA: ?? Brainstem and cerebellum appear unremarkable. ??No abnormal enhancement. DIFFUSION IMAGING: ?? There is a small focus of diffusion-weighted hyperintensity in the right connolly radiata. ??ADC signal is isointense in this area, suggesting subacute infarct. EXTRAAXIAL SPACES: ?? No hemorrhage. ??No mass or abnormal enhancement. BRAIN VOLUME: ?? Background brain volume is within normal limits . ??There is ex vacuo dilatation of the right lateral ventricle. PITUITARY: ?? Unremarkable. VASCULATURE: ?? No flow disturbance identified. ORBITS: ?? No masses. Globes normal. PARANASAL SINUSES AND MASTOIDS: ?? Moderate maxillary and ethmoid sinus mucosal thickening. ??Milder frontal and sphenoid sinus mucosal thickening OTHER: ?? No other significant finding. IMPRESSION: Small focus of diffusion-weighted hyperintensity in the right connolly radiata with isointense ADC signal, most compatible with subacute infarct. Large area of right middle cerebral artery territory encephalomalacia with associated gliosis and chronic blood degradation products. Paranasal sinus mucosal thickening. THIS IS AN ELECTRONICALLY VERIFIED FINAL REPORT 03/05/2024 10:19 AM - Electronically signed by ??César Sales M.D. 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 Additional sequence(s)sensitive to blood products. Images stored on PACS. CONTRAST TYPE/DOSE: 17mL of GADOTERATE MEGLUMINE 0.5 MMOL/ML INTRAVENOUS SOLUTION (SO) injected via intravenous COMPARISON: CT angiography from 03/04/2024. Head CT from 12/06/2023 FINDINGS: CEREBRUM: No hemorrhage, edema, or mass effect. There is a large areaof right middle cerebral artery territory encephalomalacia with associated gliosis. There is mild linear T1 hyperintensity about the margins of the medial aspect of the infarcts, likely cortical laminar necrosis, without definite superimposed enhancement. There are chronic blood degradation products in the encephalomalacia territory. WHITE MATTER: Gliosis as above. Minimal periventricular white matter hypoattenuation, which may be chronic microvascular ischemic type changebut is nonspecific. POSTERIOR FOSSA: Brainstem and cerebellum appear unremarkable. Noabnormal enhancement. DIFFUSION IMAGING: There is a small focus of diffusion-weighted hyperintensity in the right connolly radiata. ADC signal is isointense inthis area, suggesting subacute infarct. EXTRAAXIAL SPACES: No hemorrhage. No mass or abnormal enhancement. BRAIN VOLUME: Background brain volume is within normal limits . Thereis ex vacuo dilatation of the right lateral ventricle. PITUITARY: Unremarkable. VASCULATURE: No flow disturbance identified. ORBITS: No masses. Globes normal. PARANASAL SINUSES AND MASTOIDS: Moderate maxillary and ethmoid sinusmucosal thickening. Milder frontal and sphenoid sinus mucosal thickening OTHER: No other significant finding. IMPRESSION: Small focus of diffusion-weighted hyperintensity in the right coronaradiata with isointense ADC signal, most compatible with subacute infarct. Large area of right middle cerebral artery territory encephalomalaciawith associated gliosis and chronic blood degradation products. Paranasal sinus mucosal thickening. THIS IS AN ELECTRONICALLY VERIFIED FINAL REPORT 03/05/2024 10:19 AM - Electronically signed by César Sales M.D. MZ: VICK Report ID: [id number] Reading Location: [id number] us Jenny Fierro MD IMG MRI PROCEDURES Final Re sult * eGFR (03/05/2024 4:25 AM CDT) eGFR >90 >=60 mL/min/1. 73 m2 Comment: Interpretive Data Reference Interval Normal ?>/= 90 mL/min/1.73m2 Mildly decreased* ? 60 - 89 mL/min/1.73m2 Mildly to moderately decreased ?45 - 59 mL/min/1.73m2 Moderately to severely decreased ??30 - 44 mL/min/1.73m2 Severely decreased ?15 - 29 mL/min/1.73m2 Kidney Failure ?< 15 ??mL/min/1.73m2 *Relative to young adult level Estimated glomerular filtration rate is determined by the 2020 CKD-EPI equation recommended by the National Kidney Foundation (A Unifying Approach to GFR Estimation: Recommendations of the NKF-ASK Task Force on Reassessing the Inclusion of Race in Diagnosing Kidney Disease, JASN 2020). The CKD-EPI equation should not be used for patients with unstable renal function and has not been validated in children and those over 70. Current interpretive data was last reviewed 2021. Blood 03/05/2024 4:25 AM CDT 03/05/2024 5:16 AM CDT us Zo Mooney MD LAB BLOOD ORDERABLES Fin al Result LEESA ABRAMS BRICELYN) 1 [facility] [place] [address] * Differential, auto (03/05/2024 4:25 AM CDT) Neutrophil abs 3.3 1.5 - 6.5 K/cumm Imm gran abs 0.0 0.0 - 0.1 K/cumm [facility] ([facility]) Lymphocyte abs 2.0 0.8 - 3.3 K/cumm [facility] ([facility]) Monocyte abs 0.4 0.2 - 0.8 K/cumm [facility] ([facility]) Eosinophil abs 0.5 0.0 - 0.5 K/cumm [facility] ([facility]) Basophil abs 0.1 0.0 - 0.1 K/cumm [facility] ([facility]) Neutrophil pct 52.6 % [facility] (DEVENDRA) Comment: Interpretive Data Percent cell count reference ranges are not reported, since discordance with absolute values may lead to misinterpretation of CBC data. Current Interpretive Data was last revised on 2017. Imm gran pct 0.2 % [facility] (DEVEN[facility]) Comment: Interpretive Data Percent cell count reference ranges are not reported, since discordance with absolute values may lead to misinterpretation of CBC data. Current Interpretive Data was last revised on 2017. Lymphocyte pct 32.3 % [facility] (DEV[facility]) Comment: Interpretive Data Percent cell count reference ranges are not reported, since discordance with absolute values may lead to misinterpretation of CBC data. Current Interpretive Data was last revised on 2017. Monocyte pct 6.8 % [facility] ([facility]) Comment: Interpretive Data Percent cell count reference ranges are not reported, since discordance with absolute values may lead to misinterpretation of CBC data. Current Interpretive Data was last revised on 2017. Eosinophil pct 7.3 % [facility] ([facility]) Comment: Interpretive Data Percent cell count reference ranges are not reported, since discordance with absolute values may lead to misinterpretation of CBC data. Current Interpretive Data was last revised on 2017. Basophil pct 0.8 % [facility] (DEVENDR[facility]) Comment: Interpretive Data Percent cell count reference ranges are not reported, since discordance with absolute values may lead to misinterpretation of CBC data. Current Interpretive Data was last revised on 2017. Blood 03/05/2024 4:25 AM CDT 03/05/2024 5:16 AM CDT Zo Mooney MD LAB BLOOD ORDERABLES Fin al Result [facility] (DEVENDRA) 1 [facility] [place] [address] * (ABNORMAL) CBC with auto differential (03/05/2024 4:25 AM CDT) WBC 6.2 3.8 - 9.9 K/cumm Hgb 14.4 13.0 - 17.5 g/dL [facility] ([facility]) Hct 43.3 38.9 - 50.3 % [facility] ([facility]) Plt 189 150 - 400 K/cumm [facility] ([facility]) MPV 8.8(L) 9.1 - 12.3 fL [facility] RBC 4.93 4.30 - 5.80 M/cumm [facility] ([facility]) MCV 87.8 81.3 - 96.4 fL [facility] ([facility]) MCH 29.2 27.1 - 33.3 pg [facility] ([facility]) MCHC 33.3 32.3 - 35.7 g/dL [facility] ([facility]) RDW CV 12.1 11.1 - 14.9 % [facility] ([facility]) RDW SD 38.7 35.7 - 48.1 fL [facility] NRBC abs 0.00 0.00 - 0.01 K/cumm [facility] ([facility]) Blood 03/05/2024 4:25 AM CDT 03/05/2024 5:16 AM CDT Zo Mooney MD LAB BLOOD ORDERABLES Fin al Result LEESA ABRAMS (DEVENDRA) 1 [facility] [place] [address] * Erythrocyte sedimentation rate (03/05/2024 4:25 AM CDT) Erythrocyte sedimentation rate 11 1 - 15 mm/hr Blood 03/05/2024 4:25 AM CDT 03/05/2024 6:17 AM CDT Zo Mooney MD LAB BLOOD ORDERABLES Fin al Result LEESA ABRAMS (DEVENDRA) 1 [facility] [place] [address] * CRP (acute phase) (03/05/2024 4:25 AM CDT) CRP <3.0 <=10.0 mg/L Blood 03/05/2024 4:25 AM CDT 03/05/2024 6:17 AM CDT Zo Mooney MD LAB BLOOD ORDERABLES Fin al Result Performing Organization Address [facility] Co de Phone Number LEESA ABRAMS (BRICELYN) 1 [facility] [place] [address] * Basic metabolic panel (03/05/2024 4:25 AM CDT) Sodium 138 135 - 145 mmol/L Potassium, pl 4.1 3.3 - 4.9 mmol/L [facility] (DEV[facility]) Chloride 106 97 - 110 mmol/L [facility] ([facility]) CO2 22 22 - 32 mmol/L [facility] ([facility]) Anion gap 11 2 - 15 mmol/L [facility] ([facility]) BUN 14 6 - 25 mg/dL [facility] (DEVENDRA) Creatinine 0.89 0.80 - 1.30 mg/dL [facility] ([facility]) Glucose 79 70 - 199 mg/dL [facility] (DEVENDRA) Comment: Interpretive Data Fasting glucose >/= 126 mg/dl is diagnostic for diabetes. ?? Fasting is defined as no caloric intake for at least 8 hours. Fasting glucose between 100 mg/dl to 125 mg/dl is diagnostic of prediabetes. In a patient with classic symptoms of hyperglycemia or hyperglycemic crisis, a random glucose >/= 200 mg/dl is diagnostic for diabetes. In the absence of unequivocal hyperglycemia, results should be confirmed by repeat testing. The classification and Diagnosis of Diabetes Diabetes Care 2021; 46: S19-S40. Current interpretive data was last revised 2022. Calcium 8.5 8.5 - 10.3 mg/dL [facility] (DEVENDRA) Blood 03/05/2024 4:25 AM CDT 03/05/2024 5:16 AM CDT Zo Mooney MD LAB BLOOD ORDERABLES Fin al Result Performing Organization Address [facility] Co de Phone Number LEESA ABRAMS (DEVENDRA) 1 [facility] [place] [address] * Troponin T high-sensitivity 4-hour (03/04/2024 9:39 PM CDT) Trop T hs <6 <=22 ng/L Comment: Interpretive Data For further hscTnT resources including the diagnostic algorithm and an aid in interpretation, copy and paste this link: https://nrl.Spiration.org/show/hsTrop Current Interpretive Data last revised 2020. Trop T hs delta 0 ng/L [facility] ([facility]) Trop T hs interp Insignificant [facility] ([facility]) Blood 03/04/2024 9:39 PM CDT 03/04/2024 9:41 PM CDT us Jenny Fierro MD LAB BLOOD ORDERABLES Final Result Performing Organization Address [facility] Co de Phone Number LEESA ABRAMS (DEVENDRA) 1 [facility] [place] [address] * Troponin T high-sensitivity 2-hour (03/04/2024 7:05 PM CDT) Trop T hs 7 <=22 ng/L Comment: Interpretive Data For further hscTnT resources including the diagnostic algorithm and an aid in interpretation, copy and paste this link: https://nrl.testStream Tags.org/show/hsTrop Current Interpretive Data last revised 2020. Trop T hs delta 1 ng/L [facility] ([facility]) Trop T hs interp Insignificant [facility] (DEVENDRA) Blood 03/04/2024 7:05 PM CDT 03/04/2024 7:13 PM CDT us Jenny Fierro MD LAB BLOOD ORDERABLES Final Result LEESA ABRAMS (DEVENDRA) 1 [facility] [place] [address] * MO CRITICAL CARE ILL/INJURED PATIENT INIT 30-74 MIN (03/04/2024 7:03 PM CDT) Narrative Jenny Fierro MD - 03/04/2024 7:03 PM CDT Jenny Fierro MD ? 03/04/2024 ??7:06 PM Critical Care Performed by: Jenny Fierro MD Authorized by: Jenny Fierro MD ?? Critical care provider statement: As reflected in the history, physical exam, orders, notes, and/or MDM, I was personally present while the patient was critically ill and provided critical care services for 35 minutes, excluding time involved in separately billable procedures. ??Critical care was necessary to treat or prevent imminent or life-threatening deterioration of the following condition(s): ?? acute cerebrovascular accident (CVA) and severe neurologic condition ??Critical care was time spent by me providing the following: ? continuous telemetry, continuous pulse oximetry and serial bedside patient exams ?? frequent neurologic exams, decision regarding acute lytic therapy and initiation of stroke management ?? I provided emergent necessary critical care medicine services to this patient. I ordered and reviewed test results and/or imaging studies. I spent time discussing the management of this critically ill patient with consultants and the medical staff. I spent time discussing the management and therapeutic options for this critically ill patient with the patient themselves or with the appropriate designated surrogate decision-maker. I admitted this patient to an Intensive Care unit (ICU) and discussed management with the admitting team. I spent time documenting in the medical record. I admitted this patient to a continuous cardiac monitored bed. us Jenny Fierro MD IN CLINIC/BEDSIDE ORDERABLE S Final Result * (ABNORMAL) Urinalysis reflex to microscopic and culture Urine (03/04/2024 6:03 PM CDT) Color, ur Straw Yellow Clarity, ur Clear Clear [facility] (DEVENDRA) Specific gravity, ur 1.049(H) 1.003 - 1.030 [facility] ([facility]) pH, urine 7.0 [facility] ([facility]) Comment: Interpretive Data ? Urine pH is affected by diet, medications, systemic acid-base disturbances, and renal tubular function. ??pH may affect urinary stone formation. ??For example, urine pH below 6.0 may help reduce the tendency for calcium phosphate stones and pH greater than 6.0 may reduce the tendency for uric acid stone formation. Source: [facility] [place] Current Interpretive Data was last revised on 2017 Protein, ur ql Negative Negative [facility] (DEVENDR[facility]) Glucose, ur ql Negative Negative [facility] ([facility]) Ketones, ur Negative Negative [facility] (DEVENDRA) Bilirubin, ur Negative Negative [facility] (DEVENDR[facility]) Blood, ur 1+(A) Negative [facility] ([facility]) Urobilinogen, ur <2.0 <2.0 mg/dL [facility] (DEVEN[facility]) Nitrite, ur Negative Negative [facility] (DEVENDRA) Leukocyte esterase, ur Negative Negative [facility] ([facility]) UA reflex comment Reflex to microscopic UA will be performed. [facility] ([facility]) Urine 03/04/2024 6:03 PM CDT 03/04/2024 6:09 PM CDT Jenny Fierro MD LAB MICROBIOLOGY - GENERAL ORDERABLES Final Result [facility] (DEVENDRA) 1 [facility] [place] [address] * (ABNORMAL) Urinalysis, microscopic only (03/04/2024 6:03 PM CDT) WBC, ur 0-5 0 - 5 /HPF RBC, ur 11-20(A) 0 - 2 /HPF [facility] ([facility]EN[facility]) Mucous, ur Present(A) [facility] (DEVENDR[facility]) Culture Reflex Comment Reflex conditions for urine culture (WBC >10) not met. LEESA ABRAMS (DEVENDRA) Urine 03/04/2024 6:03 PM CDT 03/04/2024 6:09 PM CDT us Jenny Fierro MD LAB URINE ORDERABLES Final Result LEESA ABRAMS (BRICELYN) 1 [facility] [place] [address] * CTA Stroke Head Neck W WO Contrast (03/04/2024 5:54 PM CDT) Anatomical Region Laterality Modality Head and Neck N/A Computed Tomogra phy 03/04/2024 6:04 PM CDT Addenda Addendum by Danish Dolan MD on 03/04/2024 6:21 PM CDT ADDENDUM: This addendum report supersedes the original report dated 03/04/2024 The results were communicated to the ordering physician by the Radiology child support officer. ??At 1816 hours 03/04/2024 END OF ADDENDUM REPORT THIS IS AN ELECTRONICALLY VERIFIED FINAL REPORT 03/04/2024 6:21 PM ??Addendum Electronically signed by Danish Dolan M.D. KN: JOSE M D: ??03/04/2024 6:21 PM T: ??03/04/2024 6:21 PM Report ID: [id number] Reading Location: ??[id number] Narrative 03/04/2024 6:11 PM CDT EXAM DESCRIPTION: ?? CTA STROKE HEAD NECK W WO CONTRAST REASON FOR STUDY: ? Dizziness, right facial numbness, and bilateral leg numbness since approximately 1500 today ??Hx of stroke and stents in neck ? TECHNIQUE: Axial images were first obtained through the brain without contrast. ?? Axial dynamic scanning technique with dynamic contrast enhancement through the intracranial and extracranial carotid and vertebral arteries. Multiplanar reconstruction. All stenosis measurements are based on NASCET criteria. ??3D MIP images rendered on scanning unit and reviewed at time of interpretation. Automated exposure control was used as a dose optimization technique for this examination. CONTRAST TYPE/DOSE: ?? 100mL of IOVERSOL 350 MG IODINE/ML INTRAVENOUS SYRINGE ?? injected via ?? intravenous COMPARISON: ?? 12/06/[address].. ??CT angiogram dated 12/01/2023 FINDINGS: BRAIN CEREBRUM: ?? There is encephalomalacia within the right MCA territory related to the prior ischemic infarction. ?? No acute abnormality identified. WHITE MATTER: ?? Normal. POSTERIOR FOSSA: ?? No masses. No hemorrhage. No evidence for acute infarction. EXTRA-AXIAL SPACES: ?? No fluid collections. No masses. ORBITS: ?? No significant abnormality. CALVARIUM: ?? No fracture. SINUSES/MASTOIDS: ?? No fluid or mucosal thickening. OTHER: ?? No other significant abnormality. INTRACRANIAL VESSELS [place]: ?? The right MCA appears patent, new from the prior exam. ?? The MCA, FRUIT DRYER, and LEIF appear patent. POSTERIOR CIRCULATION: ?? The distal vertebral arteries are patent as is the basilar artery. No aneurysm. BRAIN: ?? No gross enhancing lesions as visualized. CAROTID CTA RIGHT CAROTIDS: ?? There is a stent in the distal cervical internal carotid. ?? It is widely patent. ??No significant stenosis of the carotid. LEFT CAROTIDS: ?? No internal, external or common carotid stenosis. ?? LEFT VERTEBRAL: ?? Patent. No significant stenosis. No dissection. RIGHT VERTEBRAL: ?? Patent. No significant stenosis. No dissection. AORTIC ARCH: ?? Normal three-vessel origin. Bilateral subclavian arteries are patent. No dissection. NECK SOFT TISSUE: ?? No mass, adenopathy. No thyroid nodule greater than 1 cm. INCLUDED LUNGS: ?? No acute abnormality. No worrisome nodules. OTHER: ?? No other significant finding. IMPRESSION: BRAIN: ?? No acute abnormalities. ?? Old encephalomalacia in the right MCA territory INTRACRANIAL CTA: ?? Normal. CAROTID CTA: ?? Patent distal right internal carotid artery stent. No significant stenosis or occlusion. THIS IS AN ELECTRONICALLY VERIFIED FINAL REPORT 03/04/2024 6:11 PM - Electronically signed by ??Danish Dolan M.D. KN: JOSE M D: ??03/04/2024 6:11 PM T: ??03/04/2024 6:11 PM Report ID: [id number] Reading Location: ??[id number] Procedure Note Danish Dolan MD - 03/04/2024 EXAM DESCRIPTION: CTA STROKE HEAD NECK W WO CONTRAST REASON FOR STUDY: Dizziness, right facial numbness, and bilateral leg numbness since approximately 1500 today Hx of stroke and stents in neck TECHNIQUE: Axial images were first obtained through the brain without contrast. Axial dynamic scanning technique with dynamic contrast enhancement throughthe intracranial and extracranial carotid and vertebral arteries. Multiplanar reconstruction. All stenosis measurements are based on NASCET criteria. 3D MIP images rendered on scanning unit and reviewed at time of interpretation. Automated exposure control was used as a dose optimization technique forthis examination. CONTRAST TYPE/DOSE: 100mL of IOVERSOL 350 MG IODINE/ML INTRAVENOUSSYRINGE injected via intravenous COMPARISON: 12/06/[address] CT angiogram dated12/01/2023 FINDINGS: BRAIN CEREBRUM: There is encephalomalacia within the right MCA territoryrelated to the prior ischemic infarction. No acute abnormality identified. WHITE MATTER: Normal. POSTERIOR FOSSA: No masses. No hemorrhage. No evidence for acuteinfarction. EXTRA-AXIAL SPACES: No fluid collections. No masses. ORBITS: No significant abnormality. CALVARIUM: No fracture. SINUSES/MASTOIDS: No fluid or mucosal thickening. OTHER: No other significant abnormality. INTRACRANIAL VESSELS [place]: The right MCA appears patent, new from the prior exam. The MCA, FRUIT DRYER, and LEIF appear patent. POSTERIOR CIRCULATION: The distal vertebral arteries are patent as isthe basilar artery. No aneurysm. BRAIN: No gross enhancing lesions as visualized. CAROTID CTA RIGHT CAROTIDS: There is a stent in the distal cervical internalcarotid. It is widely patent. No significant stenosis of the carotid. LEFT CAROTIDS: No internal, external or common carotid stenosis. LEFT VERTEBRAL: Patent. No significant stenosis. No dissection. RIGHT VERTEBRAL: Patent. No significant stenosis. No dissection. AORTIC ARCH: Normal three-vessel origin. Bilateral subclavian arteriesare patent. No dissection. NECK SOFT TISSUE: No mass, adenopathy. No thyroid nodule greater than 1cm. INCLUDED LUNGS: No acute abnormality. No worrisome nodules. OTHER: No other significant finding. IMPRESSION: BRAIN: No acute abnormalities. Old encephalomalacia in the right MCA territory INTRACRANIAL CTA: Normal. CAROTID CTA: Patent distal right internal carotid artery stent. No significant stenosis or occlusion. THIS IS AN ELECTRONICALLY VERIFIED FINAL REPORT 03/04/2024 6:11 PM - Electronically signed by Danish Dolan M.D. KN: JOSE M Report ID: [id number] Reading Location: [id number] Jenny Fierro MD IMG CT PROCEDURES Edited Re sult - Final * ECG 12 lead (03/04/2024 5:51 PM CDT) 03/04/2024 5:51 PM CDT Narrative [facility] - 03/05/2024 6:33 AM CDT Vent Rate: 86 bpm RR Interval: 696 msec MO Interval: 164 msec QRS Duration: 96 msec QT Interval: 343 msec QTC Interval: 386 msec P-R-T Pearce: 45 - 14 - 4 degrees IMPRESSION: SINUS RHYTHM WITH SINUS ARRHYTHMIA NORMAL ECG NO CHANGE FROM PREVIOUS TRACING NOTED Electronically Signed By: Phillip Gallagher MD Jenny Fierro MD ECG ORDERABLES Final Resul t [facility] * CT Stroke Head WO Contrast (03/04/2024 5:40 PM CDT) Anatomical Region Laterality Modality Head N/A Computed Tomogra phy 03/04/2024 5:45 PM CDT Narrative 03/04/2024 5:53 PM CDT EXAM DESCRIPTION: CT STROKE HEAD WO CONTRAST REASON FOR STUDY: Stroke, follow up, Stroke ?? Dizziness, right facial numbness, and bilateral leg numbness since approximately 1500 today ??Hx of stroke and stents in neck ? TECHNIQUE: Axial images acquired through the brain without intravenous contrast. ??Images stored on PACS. ?? Automated exposure control was used as a dose optimization technique for this examination. COMPARISON: 12/06/2023 FINDINGS: BRAIN: ?? No definitive acute hemorrhage, edema or mass effect. ??There has been interval expected evolution of right middle cerebral artery territorial infarct characterized on prior CT 12/06/2023 with interval development of encephalomalacia including within the head and body of the right caudate nucleus. ??There is no midline shift. ??Basal cisterns are patent. ??No acute intraventricular hemorrhage. EXTRA-AXIAL SPACES: ?? No fluid collections. No masses. CALVARIUM: ?? No fracture. SINUSES/MASTOIDS: Mucosal thickening of bilateral maxillary sinuses and ethmoid air cells and slight mucosal thickening of the sphenoid sinuses. ?? Otherwise, no fluid or mucosal thickening. ORBITS: ?? No significant abnormality. OTHER: ?? A right internal carotid artery stent is incompletely imaged. IMPRESSION: 1. No definitive acute intracranial findings. 2. Interval expected evolution of right middle cerebral artery territorial infarct characterized on prior CT 12/06/2023 with interval development of encephalomalacia including within the head and body of the right caudate nucleus. ??No acute intraparenchymal hemorrhage. Findings were telephoned by Dr. Mendiola to DR. JENNY FIERRO at 5:51 p.m. PRODUCT CONTROLLER on 03/04/2024. THIS IS AN ELECTRONICALLY VERIFIED FINAL REPORT 03/04/2024 5:53 PM - Electronically signed by ??Hector Mendiola M.D. AT: AT D: ??03/04/2024 5:53 PM T: ??03/04/2024 5:53 PM Report ID: [id number] Reading Location: ??[id number] Procedure Note Hector Mendiola MD - 03/04/2024 EXAM DESCRIPTION: CT STROKE HEAD WO CONTRAST REASON FOR STUDY: Stroke, follow up, Stroke Dizziness, right facial numbness, and bilateral leg numbness since approximately 1500 today Hx of stroke and stents in neck TECHNIQUE: Axial images acquired through the brain without intravenous contrast. Images stored on PACS. Automated exposure control was used asa dose optimization technique for this examination. COMPARISON: 12/06/2023 FINDINGS: BRAIN: No definitive acute hemorrhage, edema or mass effect. There hasbeen interval expected evolution of right middle cerebral artery territorial infarct characterized on prior CT 12/06/2023 with interval development of encephalomalacia including within the head and body of the right caudate nucleus. There is no midline shift. Basal cisterns are patent. No acute intraventricular hemorrhage. EXTRA-AXIAL SPACES: No fluid collections. No masses. CALVARIUM: No fracture. SINUSES/MASTOIDS: Mucosal thickening of bilateral maxillary sinuses and ethmoid air cells and slight mucosal thickening of the sphenoid sinuses. Otherwise, no fluid or mucosal thickening. ORBITS: No significant abnormality. OTHER: A right internal carotid artery stent is incompletely imaged. IMPRESSION: 1. No definitive acute intracranial findings. 2. Interval expected evolution of right middle cerebral artery territorial infarct characterized on prior CT 12/06/2023 with interval development of encephalomalacia including within the head and body of the right caudate nucleus. No acute intraparenchymal hemorrhage. Findings were telephoned by Dr. Mendiola to DR. JENNY FIERRO at 5:51p.m. PRODUCT CONTROLLER on 03/04/2024. THIS IS AN ELECTRONICALLY VERIFIED FINAL REPORT 03/04/2024 5:53 PM - Electronically signed by Hector Mendiola M.D. AT: AT Report ID: [id number] Reading Location: [id number] Jenny Fierro MD IMG CT PROCEDURES Final Res ult * Troponin T high-sensitivity series (baseline, 2hr, 4hr, 6hr) (03/04/2024 5:32 PM CDT) Trop T hs <6 <=22 ng/L Comment: Interpretive Data For further hscTnT resources including the diagnostic algorithm and an aid in interpretation, copy and paste this link: [email or web address].testcatalog.org/show/[email or web address] Current Interpretive Data last revised 2020. Blood 03/04/2024 5:32 PM CDT 03/04/2024 5:38 PM CDT Jenny Fierro MD LAB BLOOD ORDERABLES Final Result [facility] ([place]) 1 [facility] Department [place] [address] * eGFR (03/04/2024 5:32 PM CDT) [facility] eGFR >90 >=60 mL/min/1. 73 m2 Comment: Interpretive Data Reference Interval Normal ?>/= 90 mL/min/1.73m2 Mildly decreased* ? 60 - 89 mL/min/1.73m2 Mildly to moderately decreased ?45 - 59 mL/min/1.73m2 Moderately to severely decreased ??30 - 44 mL/min/1.73m2 Severely decreased ?15 - 29 mL/min/1.73m2 Kidney Failure ?< 15 ??mL/min/1.73m2 *Relative to young adult level Estimated glomerular filtration rate is determined by the 2020 CKD-EPI equation recommended by the National Kidney Foundation (A Unifying Approach to GFR Estimation: Recommendations of the NKF-ASK Task Force on Reassessing the Inclusion of Race in Diagnosing Kidney Disease, JASN 2020). The CKD-EPI equation should not be used for patients with unstable renal function and has not been validated in children and those over 70. Current interpretive data was last reviewed 2021. Blood 03/04/2024 5:32 PM CDT 03/04/2024 5:38 PM CDT us Jenny Fierro MD LAB BLOOD ORDERABLES Final Result [facility] ([place]) 1 [facility] Department [place] [address] * Differential, auto (03/04/2024 5:32 PM CDT) [facility] Neutrophil abs 4.6 1.5 - 6.5 K/cumm Imm gran abs 0.0 0.0 - 0.1 K/cumm [facility] ([facility]) Lymphocyte abs 1.5 0.8 - 3.3 K/cumm [facility] ([facility]) Monocyte abs 0.4 0.2 - 0.8 K/cumm [facility] ([facility]) Eosinophil abs 0.3 0.0 - 0.5 K/cumm [facility] ([facility]) Basophil abs 0.1 0.0 - 0.1 K/cumm [facility] ([facility]) Neutrophil pct 67.4 % [facility] ([facility]) Comment: Interpretive Data Percent cell count reference ranges are not reported, since discordance with absolute values may lead to misinterpretation of CBC data. Current Interpretive Data was last revised on 2017. Imm gran pct 0.1 % [facility] ([facility]) Comment: Interpretive Data Percent cell count reference ranges are not reported, since discordance with absolute values may lead to misinterpretation of CBC data. Current Interpretive Data was last revised on 2017. Lymphocyte pct 21.5 % [facility] ([facility]) Comment: Interpretive Data Percent cell count reference ranges are not reported, since discordance with absolute values may lead to misinterpretation of CBC data. Current Interpretive Data was last revised on 2017. Monocyte pct 5.3 % [facility] ([facility]) Comment: Interpretive Data Percent cell count reference ranges are not reported, since discordance with absolute values may lead to misinterpretation of CBC data. Current Interpretive Data was last revised on 2017. Eosinophil pct 5.0 % [facility] ([facility]) Comment: Interpretive Data Percent cell count reference ranges are not reported, since discordance with absolute values may lead to misinterpretation of CBC data. Current Interpretive Data was last revised on 2017. Basophil pct 0.7 % [facility] ([facility]) Comment: Interpretive Data Percent cell count reference ranges are not reported, since discordance with absolute values may lead to misinterpretation of CBC data. Current Interpretive Data was last revised on 2017. Blood 03/04/2024 5:32 PM CDT 03/04/2024 5:38 PM CDT Jenny Fierro MD LAB BLOOD ORDERABLES Final Result [facility] [place] [address] * (ABNORMAL) CBC with auto differential (03/04/2024 5:32 PM CDT) WBC 6.8 3.8 - 9.9 K/cumm Hgb 15.7 13.0 - 17.5 g/dL [facility]) Hct 44.8 38.9 - 50.3 % [facility]) Plt 235 150 - 400 K/cumm [facility] ([facility]) MPV 8.4(L) 9.1 - 12.3 fL [facility]) RBC 5.35 4.30 - 5.80 M/cumm [facility] ([facility]) MCV 83.7 81.3 - 96.4 fL [facility] ([facility]) MCH 29.3 27.1 - 33.3 pg [facility]) MCHC 35.0 32.3 - 35.7 g/dL [facility]) RDW CV 11.9 11.1 - 14.9 % [facility]) RDW SD 36.5 35.7 - 48.1 fL [facility]) NRBC abs 0.00 0.00 - 0.01 K/cumm [facility] ([facility]) Blood (Blood, Venous) 03/04/2024 5:32 PM CDT 03/04/2024 5:38 PM CDT Narrative [facility] ([facility]) - 03/04/2024 5:42 PM CDT Potential Stroke Patient Jenny Fierro MD LAB BLOOD ORDERABLES Final Result [facility] ([facility] [place] [address] * aPTT (03/04/2024 5:32 PM CDT) aPTT 31 28 - 38 sec [facility] ([facility]) Comment: Interpretive Data Heparin therapeutic range: 66.0 - 100.0 seconds. Range based on correlation with therapeutic heparin activity range of 0.3 - 0.7 Units/mL. Current interpretive data was last revised on 2023. Blood (Blood, Venous) 03/04/2024 5:32 PM CDT 03/04/2024 5:38 PM CDT Narrative [facility] - 03/04/2024 5:54 PM CDT Potential stroke patient. Jenny Fierro MD LAB BLOOD ORDERABLES Final Result [facility] ([place]) 1 [facility] [place] [address] * Erythrocyte sedimentation rate (03/04/2024 5:32 PM CDT) Erythrocyte sedimentation rate 6 1 - 15 mm/hr Blood 03/04/2024 5:32 PM CDT 03/04/2024 6:13 PM CDT Jenny Fierro MD LAB BLOOD ORDERABLES Final Result Performing Organization Address City/[facility] Co de Phone Number [facility] ([place]) 1 [facility] [place] [address] * Protime-INR (03/04/2024 5:32 PM CDT) PT 10.8 9.7 - 13.0 sec [facility]) INR 1.00 0.90 - 1.20 [facility]) Comment: Interpretive data Oral anticoagulant therapeutic ranges: Venous thromboembolism prophylaxis or treatment: 2.0-3.0 CARDIOLOGY Standard range: 2.0-3.0 High-intensity range: 2.5-3.5 Refer to indication-specific guidelines for appropriate target ranges for prosthetic heart valve replacement. Current interpretive data was last revised on 2019. Blood 03/04/2024 5:32 PM CDT 03/04/2024 5:38 PM CDT us Jenny Fierro MD LAB BLOOD ORDERABLES Final Result [facility] ([facility]) [facility] Department [place] [address] * Comprehensive metabolic panel (03/04/2024 5:32 PM CDT) Sodium 135 135 - 145 mmol/L Potassium, pl 3.8 3.3 - 4.9 mmol/L [facility]) Chloride 101 97 - 110 mmol/L [facility]) CO2 24 22 - 32 mmol/L [facility]) Anion gap 10 2 - 15 mmol/L [facility]) BUN 15 6 - 25 mg/dL [facility]) Creatinine 1.04 0.80 - 1.30 mg/dL [facility]) Glucose 104 70 - 199 mg/dL [facility]) Comment: Interpretive Data Fasting glucose >/= 126 mg/dl is diagnostic for diabetes. ?? Fasting is defined as no caloric intake for at least 8 hours. Fasting glucose between 100 mg/dl to 125 mg/dl is diagnostic of prediabetes. In a patient with classic symptoms of hyperglycemia or hyperglycemic crisis, a random glucose >/= 200 mg/dl is diagnostic for diabetes. In the absence of unequivocal hyperglycemia, results should be confirmed by repeat testing. The classification and Diagnosis of Diabetes Diabetes Care 2021; 46: S19-S40. Current interpretive data was last revised 2022. Calcium 9.1 8.5 - 10.3 mg/dL [facility]) Bilirubin, total 0.4 0.1 - 1.2 mg/dL [facility]) Protein, pl 7.5 6.5 - 8.5 g/dL [facility]) Albumin 4.5 3.5 - 5.0 g/dL [facility]) Alk phos 129 40 - 130 Units/L [facility]) ALT 53 7 - 55 Units/L [facility]) AST 23 10 - 50 Units/L [facility]) Blood (Blood, Venous) 03/04/2024 5:32 PM CDT 03/04/2024 5:38 PM CDT Narrative [facility] - 03/04/2024 6:01 PM CDT Potential Stroke Patient us Jenny Fierro MD LAB BLOOD ORDERABLES Final Result [facility] ([place]) [facility] Department [place] [address] * POCT glucose (03/04/2024 5:31 PM CDT) [facility] Signature Glucose, POC 86 70 - 199 mg/dL Blood 03/04/2024 5:31 PM CDT 03/04/2024 5:31 PM CDT us Senthil Pérez DO LAB POCT ORDERABLES - DEVICE Final Result [facility] ([place]) [facility] [place] [address] from Last 3 Months Insurance Member Savings Program [facility] [employer] [facility] [id number] Advance Directives For more information, please contact: [phone] * Full Code (Latest Code Status on File) Date Activated Date Inactivated Comments 03/16/2024 8:37 PM 03/18/2024 5:03 PM * Full Code Date Activated Date Inactivated Comments 03/04/2024 9:37 PM 03/08/2024 6:26 PM * Full Code Date Activated Date Inactivated Comments 12/01/2023 4:26 PM 12/09/2023 12:42 AM * Full Code Date Activated Date Inactivated Comments 12/01/2023 4:19 PM 12/01/2023 4:26 PM * Full Code Date Activated Date Inactivated Comments 06/19/2023 11:03 AM 06/19/2023 4:59 PM Care Teams Generation Engineer Relationship Specialty Start Date End Date Selene Hodges NP [address] [place] [address] [place] [address] PCP - General Nurse Practitioner 03/04/24 Marcy Thomson PA Physician Body Maker Machine Setter Orthopedic Surgery 06/24/19 Dante Fuentes MD [address] [place] [address] DR BRINK [address] [place], [place] [address] [address] Consulting Physician Neurology 03/08/24
--- OUTSIDE RECORDS SUMMARY | 2024-06-03 12:27 | XMS_ITS | Clinical Summary ---
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 including the diagnostic algorithm and an aid in interpretation, copy and paste this link: https://nrl.testcatalog.org/show/hsTrop Current Interpretive Data last revised 2020. Blood 03/16/2024 5:07 PM ENGLISH DRAWER 03/16/2024 5:11 PM ENGLISH DRAWER Miguel Angel Gill MD LAB BLOOD ORDERABLES Final R esult [facility] 1 [facility] [place] [address] * eGFR (03/16/2024 5:07 PM ENGLISH DRAWER) [facility] eGFR >90 >=60 mL/min/1. 73 m2 Comment: [...] last reviewed 2021. Blood 03/16/2024 5:07 PM ENGLISH DRAWER 03/16/2024 5:11 PM ENGLISH DRAWER us Miguel Angel Gill MD LAB BLOOD ORDERABLES Final R esult [facility] ([facility]) 1 [facility] [place] [address] * Differential, auto (03/16/2024 5:07 PM ENGLISH DRAWER) Neutrophil abs 3.5 1.5 - 6.5 K/cumm Imm gran abs 0.0 0.0 - 0.1 K/cumm [facility] ([place]) Lymphocyte abs 1.8 0.8 - 3.3 K/cumm [facility] ([place]) Monocyte abs 0.3 0.2 - 0.8 K/cumm [facility] ([place]) Eosinophil abs 0.4 0.0 - 0.5 K/cumm [...] revised on 2017. Monocyte pct 5.4 % [facility] ([place]) Comment: Interpretive Data Percent cell count reference ranges are not reported, since discordance with absolute values may lead to misinterpretation of CBC data. Current Interpretive Data was last revised on 2017. Eosinophil pct 6.5 % [facility] ([place]) Comment: Interpretive Data Percent cell count reference ranges are not reported, since discordance with absolute values may lead to misinterpretation of CBC data. Current Interpretive Data was last revised on 2017. Basophil pct 0.8 % [facility] ([place]) Comment: Interpretive Data Percent cell count reference ranges are not reported, since discordance with absolute values may lead to misinterpretation of CBC data. Current Interpretive Data was last revised on 2017. Blood 03/16/2024 5:07 PM ENGLISH DRAWER 03/16/2024 5:11 PM ENGLISH DRAWER us Miguel Angel Gill MD LAB BLOOD ORDERABLES Final R esult [facility] ([place]) 1 [facility] [place] [address] * Pro B-type natriuretic peptide (03/16/2024 5:07 PM ENGLISH DRAWER) NT-proBNP <36 <=300 pg/mL Comment: Interpretive Comments: [...] et.al. Eur Heart J. 2006:27:330-337. 2. Madeleine RW, Denise AM. J. AM Malodnado Cardiol: Cardiovasc Imag. 2009;2: 216- 225. Interpretive Data Last Revised Date: 2017. Blood 03/16/2024 5:07 PM ENGLISH DRAWER 03/16/2024 5:11 PM ENGLISH DRAWER us Miguel Angel Gill MD LAB BLOOD ORDERABLES Final R esult [facility] ([facility]) 1 [facility] [place] [address] * (ABNORMAL) CBC with auto differential (03/16/2024 5:07 PM ENGLISH DRAWER) Pathologist [facility] WBC 6.1 3.8 - 9.9 K/cumm Hgb 15.6 13.0 - 17.5 g/dL [facility] ([facility]) Hct 45.7 38.9 - 50.3 % [facility] ([place]) Plt 264 150 - 400 K/cumm [facility] ([place]) MPV 8.4(L) 9.1 - 12.3 fL [facility] ([place]) RBC 5.38 4.30 - 5.80 M/cumm [facility] ([place]) MCV 84.9 81.3 - 96.4 fL [facility] ([place]) MCH 29.0 27.1 - 33.3 pg [facility] ([place]) MCHC 34.1 32.3 - 35.7 g/dL [facility] ([place]) RDW CV 11.9 11.1 - 14.9 % [facility] ([place]) RDW SD 36.0 35.7 - 48.1 fL [facility] ([place]) NRBC abs 0.00 0.00 - 0.01 K/cumm [facility] ([facility]) Blood 03/16/2024 5:07 PM ENGLISH DRAWER 03/16/2024 5:11 PM ENGLISH DRAWER Miguel Angel Gill MD LAB BLOOD ORDERABLES Final R esult Performing Organization Address City/[facility]/ZIP Co de Phone Number [facility] ([facility]) 1 [facility] [place] [address] * aPTT (03/16/2024 5:07 PM ENGLISH DRAWER) aPTT 34 28 - 38 sec [facility] ([place]) Comment: Interpretive Data Heparin therapeutic range: 66.0 - 100.0 seconds. Range based on correlation with therapeutic heparin activity range of 0.3 - 0.7 Units/mL. Current interpretive data was last revised on 2023. Blood 03/16/2024 5:07 PM ENGLISH DRAWER 03/16/2024 5:11 PM ENGLISH DRAWER Miguel Angel Gill MD LAB BLOOD ORDERABLES Final R esult [facility] ([facility]) 1 [facility] [employer] [place] [address] * Protime-INR (03/16/2024 5:07 PM ENGLISH DRAWER) Pathologist [facility] PT 11.8 9.7 - 13.0 sec [facility] ([place]) INR 1.09 0.90 - 1.20 [facility] ([place]) Comment: Interpretive data Oral anticoagulant therapeutic ranges: Venous thromboembolism prophylaxis or treatment: 2.0-3.0 CARDIOLOGY Standard range: 2.0-3.0 High-intensity range: 2.5-3.5 Refer to indication-specific guidelines for appropriate target ranges for prosthetic heart valve replacement. Current interpretive data was last revised on 2019. Blood 03/16/2024 5:07 PM ENGLISH DRAWER 03/16/2024 5:11 PM ENGLISH DRAWER us Miguel Angel Gill MD LAB BLOOD ORDERABLES Final R esult Performing Organization Address [facility] Co de Phone Number [facility] ([facility]) 1 [facility] [place] [address] * Magnesium (03/16/2024 5:07 PM ENGLISH DRAWER) [facility] Magnesium 2.0 1.4 - 2.5 mg/dL Blood 03/16/2024 5:07 PM ENGLISH DRAWER 03/16/2024 5:11 PM ENGLISH DRAWER Miguel Angel Gill MD LAB BLOOD ORDERABLES Final R esult Performing Organization Address [facility] Co de Phone Number [facility] ([facility]) 1 [facility] [place] [address] * (ABNORMAL) Comprehensive metabolic panel (03/16/2024 5:07 PM ENGLISH DRAWER) Pathologist [facility] Sodium 139 135 - 145 mmol/L Potassium, pl 3.8 3.3 - 4.9 mmol/L [facility] ([place]) Chloride 103 97 - 110 mmol/L [facility] ([place]) CO2 27 22 - 32 mmol/L [facility] ([place]) Anion gap 9 2 - 15 mmol/L [facility] ([place]) BUN 16 6 - 25 mg/dL [facility] ([place]) Creatinine 1.03 0.80 - 1.30 mg/dL [facility] ([place]) Glucose 104 70 - 199 mg/dL [facility] ([facility]) Comment: Interpretive Data Fasting glucose [...] 2022. Calcium 9.7 8.5 - 10.3 mg/dL [facility] ([facility]) Bilirubin, total 0.5 0.1 - 1.2 mg/dL [facility] ([place]) Protein, pl 7.5 6.5 - 8.5 g/dL [facility] ([place]) Albumin 4.7 3.5 - 5.0 g/dL [facility] ([place]) Alk phos 151(H) 40 - 130 Units/L [facility] ([place]) ALT 53 7 - 55 Units/L [facility] ([place]) AST 26 10 - 50 Units/L [facility] ([place]) Blood 03/16/2024 5:07 PM ENGLISH DRAWER 03/16/2024 5:11 PM ENGLISH DRAWER us Miguel Angel Gill MD LAB BLOOD ORDERABLES Final R esult [facility] ([place]) 1 [facility] Department [place] [address] * POCT glucose (03/16/2024 4:52 PM ENGLISH DRAWER) [facility] Signature Glucose, POC 108 70 - 199 mg/dL Blood 03/16/2024 4:52 PM ENGLISH DRAWER 03/16/2024 4:52 PM ENGLISH DRAWER us Notinfile Unknown LAB POCT ORDERABLES - DEVICE F inal Result [facility] ([facility]) 1 [facility] Department [place] [address] * US Carotids Duplex Bilateral (03/11/2024 1:59 PM ENGLISH DRAWER) Anatomical Region Laterality Modality Vascular Bilateral Ultrasound 03/11/2024 1:1 9 PM ENGLISH DRAWER Narrative 03/11/2024 7:00 PM ENGLISH DRAWER [facility] - Department of Vascular Surgery, Vascular Laboratory [address] [place] [address] Carotid Duplex Ultrasound Report Patient Name: DANTE LOPEZ : 1980 (43y 7m) Study Date: 03/11/2024 1:19:04 PM Gender: M Tech: DR Location: [facility] Provider: TARAH OTTO ?Quality: Adequate Order Provider: [...] PSV ?64 ? cm/sec - FINDINGS: Performing Credit Collection Associate: Clara Brenner RVT. Rt Common Carotid Artery: [...] above. Electronically Signed By: Romain Khan MD FACS 2024-03-11 18:59:02 ENGLISH DRAWER Procedure Note Romain Khan MD - 03/11/2024 [facility] - Department of Vascular Surgery,Vascular Laboratory [address] [place] [address] Carotid Duplex Ultrasound Report Patient Name: DANTE LOPEZ : 1980 (43y 7m) Study Date: 03/11/2024 1:19:04 PM Gender: M Tech: Location: [facility] Ref Provider: TARAH OTTO Quality: Adequate Order [...] LT VERT PSV 64cm/sec - FINDINGS: Performing Credit Collection Associate: WILLIAM ColonT. Rt Common Carotid Artery: Duplex imaging of [...] above. Electronically Signed By: Romain Khan MD [facility] 2024-03-11 18:59:02 ENGLISH DRAWER us Tarah Otto MD IMG US PROCEDURES Final Result * TRANSESOPHAGEAL ECHO (JOSÉ) W DOPPLER/CF WO CONTRAST (03/08/2024 11:26 AM ENGLISH DRAWER) Anatomical Region Laterality Modality Ultrasound 03/08/2024 11:0 4 AM ENGLISH DRAWER Narrative 03/08/2024 11:29 AM ENGLISH DRAWER [address] [address] TRANSESOPHAGEAL ECHOCARDIOGRAM Patient Name: DANTE LOPEZ : 1980 Study Date: 03/08/2024 11:04:30 AM Gender: M Tech: Location: [id number] Ref Provider: LUCINDA GRANADOS ?Height(Cm): BSA: ??Weight(Kg): [...] Signed By: Dr Cleveland Neff 2024-03-08 11:28:59 ENGLISH DRAWER Procedure Note Cleveland Neff MD - 03/08/[address] [place] [address] TRANSESOPHAGEAL ECHOCARDIOGRAM Patient Name: DANTE LOPEZ : 1980 Study Date: 03/08/2024 11:04:30 AM Gender: M Tech: Location: [id number] Ref Provider: LUCINDA GRANADOS Height(Cm): BSA: Weight(Kg): [...] Signed By: Dr Cleveland Neff 2024-03-08 11:28:59 ENGLISH DRAWER Lucinda Granados NP CV ECHO PROCEDURES Final Re sult * Hemoglobin A1c (03/06/2024 4:40 AM CDT) Hgb A1C 5.3 4.0 - 5.6 % Estimated Average Glucose 105 mg/dL [facility] ([facility]) Comment: The ADA recommends reporting an estimated Average Glucose (eAG) with all Hemoglobin A1c results using the equation derived from a study of 507 normal and diabetic adults. ??Minority populations were underrepresented and children were not included. ?? (Diabetes Care 31:0422-5370, 2008). ??The eAG is not equivalent to a fasting glucose. Blood 03/06/2024 4:40 AM CDT 03/06/2024 5:45 AM CDT Lucinda Granados NP LAB BLOOD ORDERABLES Final Result [facility] ([facility]) 1 [facility] Department of Laboratories [place], [place] [id number] * Lipid panel (03/06/2024 4:40 AM CDT) Cholesterol 103 30 - 199 mg/dL Comment: [...] on 2017. Triglycerides 78 <=149 mg/dL [facility]) Comment: Interpretive Data Ages [...] on 2017. Chol/HDL ratio 3 [facility] ([place]) Blood 03/06/2024 4:40 AM CDT 03/06/2024 5:45 AM CDT us Lucinda Granados NP LAB BLOOD ORDERABLES Final Result [facility] ([facility]) 1 [facility] [place] [address] * MRI Brain W WO Contrast (03/05/2024 [...] AM T: ??03/05/2024 10:19 AM Report ID: [id number] Reading Location: ??[id number] Procedure Note César Sales MD - 03/05/2024 EXAM DESCRIPTION: MRI BRAIN W WO CONTRAST REASON FOR STUDY: Headache, new or worsening, neuro deficit ([id number]), recent stent carotid Dizziness, right facial numbness, [...] César Sales M.D. MZ: VICK Report ID: [id number] Reading Location: [place] [address] Jenny Fierro MD IMG MRI PROCEDURES Final [...] MD LAB BLOOD ORDERABLES Fin al Result [facility] ([facility]) 1 [facility] Department of Laboratories [place], [place] [id number] * Differential, auto (03/05/2024 4:25 AM CDT) [...] Fin al Result [facility] ([place]) 1 [facility] [place] [address] * (ABNORMAL) CBC with auto differential (03/05/2024 4:25 AM CDT) WBC 6.2 3.8 - 9.9 K/cumm Hgb 14.4 13.0 - 17.5 g/dL [facility] ([place]) Hct 43.3 38.9 - 50.3 % [facility] ([place]) Plt 189 150 - 400 K/cumm [facility] ([place]) MPV 8.8(L) 9.1 - 12.3 fL [facility] ([facility]) RBC 4.93 4.30 - 5.80 M/cumm [facility] MCV 87.8 81.3 - 96.4 fL [facility] ([place]) MCH 29.2 27.1 - 33.3 pg [facility] ([place]) MCHC 33.3 32.3 - 35.7 g/dL [facility] ([place]) RDW CV 12.1 11.1 - 14.9 % [facility] RDW SD 38.7 35.7 - 48.1 fL [facility] ([place]) NRBC abs 0.00 0.00 - 0.01 K/cumm [facility] ([place]) Blood 03/05/2024 4:25 AM CDT 03/05/2024 5:16 AM CDT Zo Mooney MD LAB BLOOD ORDERABLES Fin al Result [facility] ([place]) 1 [facility] [employer] [address] * Erythrocyte sedimentation rate (03/05/2024 4:25 AM CDT) Erythrocyte sedimentation rate 11 1 - 15 mm/hr Blood 03/05/2024 4:25 AM CDT 03/05/2024 6:17 AM CDT Zo Mooney MD LAB BLOOD ORDERABLES Fin al Result [facility] ([place]) 1 [facility] [place] [address] * CRP (acute phase) (03/05/2024 4:25 AM CDT) CRP <3.0 <=10.0 mg/L Blood 03/05/2024 4:25 AM CDT 03/05/2024 6:17 AM CDT Zo Mooney MD LAB BLOOD ORDERABLES Fin al Result [facility] ([place]) 1 [facility] [employer] [place] [address] * Basic metabolic panel (03/05/2024 4:25 AM CDT) Sodium 138 135 - 145 mmol/L Potassium, pl 4.1 3.3 - 4.9 mmol/L [facility] ([place]) Chloride 106 97 - 110 mmol/L [facility] ([facility]) CO2 22 22 - 32 mmol/L [facility] ([place]) Anion gap 11 2 - 15 mmol/L [facility] ([place]) BUN 14 6 - 25 mg/dL [facility] Creatinine 0.89 0.80 - 1.30 mg/dL [facility] Glucose 79 70 - 199 mg/dL [facility] ([place]) Comment: Interpretive Data Fasting glucose [...] 2022. Calcium 8.5 8.5 - 10.3 mg/dL [facility] ([place]) Blood 03/05/2024 4:25 AM CDT 03/05/2024 5:16 AM CDT Zo Mooney MD LAB BLOOD ORDERABLES Fin al Result [facility] ([place]) 1 [facility] [place] [place] [address] * Troponin T high-sensitivity 4-hour (03/04/2024 9:39 PM CDT) Trop T hs <6 <=22 ng/L Comment: Interpretive Data For further hscTnT resources including the diagnostic algorithm and an aid in interpretation, copy and paste this link: https://nrl.Opsens.org/show/hsTrop Current Interpretive Data last revised 2020. Trop T hs delta 0 ng/L [facility] ([facility]) Trop T hs interp Insignificant [facility] ([place]) Blood 03/04/2024 9:39 PM CDT 03/04/2024 9:41 PM CDT us Jenny Fierro MD LAB BLOOD ORDERABLES Final Result Performing Organization Address [facility] Co de Phone Number [facility] ([facility]) [address] [place] [address] [place] [address] * Troponin T high-sensitivity 2-hour (03/04/2024 7:05 PM CDT) Trop T hs 7 <=22 ng/L Comment: Interpretive Data For further hscTnT resources including the diagnostic algorithm and an aid in interpretation, copy and paste this link: https://nrl.Opsens.org/show/hsTrop Current Interpretive Data last revised 2020. Trop T hs delta 1 ng/L [facility] ([facility]) Trop T hs interp Insignificant [facility] ([place]) Blood 03/04/2024 7:05 PM CDT 03/04/2024 7:13 PM CDT us Jenny Fierro MD LAB BLOOD ORDERABLES Final Result Performing Organization Address City/[facility]/ZIP Co de Phone Number [facility] ([facility] [place]) 1 [facility] [place] [address] * UT CRITICAL CARE ILL/INJURED PATIENT INIT 30-74 MIN [...] ur Straw Yellow Clarity, ur Clear Clear [facility] ([place]) Specific gravity, ur 1.049(H) 1.003 - 1.030 [facility] ([place]) pH, urine 7.0 [facility] ([place]) Comment: Interpretive Data ? Urine pH is affected by diet, medications, systemic acid-base disturbances, and renal tubular function. ??pH may affect urinary stone formation. ??For example, urine pH below 6.0 may help reduce the tendency for calcium phosphate stones and pH greater than 6.0 may reduce the tendency for uric acid stone formation. Source: [facility] [employer] Current Interpretive Data was last revised on [...] PM CDT us Jenny Fierro MD LAB MICROBIOLOGY - GENERAL ORDERABLES Final Result Performing Organization Address [facility] Co de Phone Number [facility] ([place]) 1 [facility] [place] [address] * (ABNORMAL) Urinalysis, microscopic only (03/04/2024 6:03 PM CDT) WBC, ur 0-5 0 - 5 /HPF RBC, ur 11-20(A) 0 - 2 /HPF [facility] ([place]) Mucous, ur Present(A) [facility] ([facility]) Culture Reflex Comment Reflex conditions for urine culture (WBC >10) not met. [facility] ([place]) Urine 03/04/2024 6:03 PM CDT 03/04/2024 6:09 PM CDT us Jenny Fierro MD LAB URINE ORDERABLES Final Result [facility] ([place]) 1 [facility] [place] [address] * CTA Stroke Head Neck W WO Contrast (03/04/2024 5:54 PM CDT) Anatomical Region Laterality Modality Head and Neck N/A Computed Tomogra phy 03/04/2024 6:04 PM CDT Addenda Addendum by Danish Dolan MD on 03/04/2024 6:21 PM CDT ADDENDUM: This addendum report supersedes the original report dated 03/04/2024 The results were communicated to the ordering physician by the Radiology senior safety support manager. ??At 1816 hours 03/04/2024 END OF ADDENDUM REPORT THIS IS AN ELECTRONICALLY VERIFIED FINAL REPORT 03/04/2024 6:21 PM ??Addendum Electronically signed by Danish Dolan M.D. KN: JOSE M D: ??03/04/2024 6:21 PM T: ??03/04/2024 6:21 PM Report ID: [id number] Reading Location: ??[id number] Narrative 03/04/2024 6:11 PM CDT EXAM DESCRIPTION: [...] ?? No other significant abnormality. INTRACRANIAL VESSELS [place]: ?? The right MCA appears patent, new from the prior exam. ?? The MCA, TRANSPORTATION LEAD, and LEIF appear patent. POSTERIOR CIRCULATION: ?? [...] PM T: ??03/04/2024 6:11 PM Report ID: [id number] Reading Location: ??[id number] Procedure Note Danish Dolan MD - 03/04/2024 [...] OTHER: No other significant abnormality. INTRACRANIAL VESSELS [place]: The right MCA appears patent, new from the prior exam. The MCA, TRANSPORTATION LEAD, and LEIF appear patent. POSTERIOR CIRCULATION: The [...] Dolan M.D. KN: JOSE M Report ID: [id number] Reading Location: [id number] Jenny Fierro MD IMG CT PROCEDURES Edited Re sult - Final * ECG 12 lead (03/04/2024 5:51 PM CDT) 03/04/2024 5:51 PM CDT Narrative [employer] - 03/05/2024 6:33 AM CDT Vent Rate: 86 bpm RR Interval: 696 msec [place] Interval: 164 msec QRS Duration: 96 msec QT Interval: 343 msec QTC Interval: 386 msec P-R-T [place]: 45 - 14 - 4 degrees IMPRESSION: SINUS RHYTHM WITH SINUS ARRHYTHMIA NORMAL ECG NO CHANGE FROM PREVIOUS TRACING NOTED Electronically Signed By: Phillip Gallagher MD us Jenny Fierro MD ECG ORDERABLES Final Resul t [facility] * CT Stroke Head [...] to DR. JENNY FIERRO at 5:51 p.m. ENGLISH DRAWER on 03/04/2024. THIS IS AN ELECTRONICALLY VERIFIED FINAL REPORT 03/04/2024 5:53 PM - Electronically signed by ??Hector Mendiola M.D. AT: AT D: ??03/04/2024 5:53 PM T: ??03/04/2024 5:53 PM Report ID: [id number] Reading Location: ??[id number] Procedure Note Hector Mendiola MD - 03/04/2024 [...] Mendiola to DR. JENNY FIERRO at 5:51p.m. ENGLISH DRAWER on 03/04/2024. THIS IS AN ELECTRONICALLY VERIFIED FINAL REPORT 03/04/2024 5:53 PM - Electronically signed by Hector Mendiola M.D. AT: AT Report ID: [id number] Reading Location: [id number] us Jenny Fierro MD IMG CT PROCEDURES Final [...] Fierro MD LAB BLOOD ORDERABLES Final Result [facility] 1 [facility] [place] [address] * eGFR (03/04/2024 5:32 PM CDT) eGFR >90 >=60 mL/min/1. 73 m2 [...] Fierro MD LAB BLOOD ORDERABLES Final Result [facility] ([facility]) 1 [facility] Department of Laboratories [place], [place] [id number] * Differential, auto (03/04/2024 5:32 PM CDT) Neutrophil abs 4.6 1.5 - 6.5 K/cumm [...] Fierro MD LAB BLOOD ORDERABLES Final Result [facility] ([facility]) 1 [facility] [place] [address] * (ABNORMAL) CBC with auto differential (03/04/2024 5:32 PM CDT) WBC 6.8 3.8 - 9.9 K/cumm Hgb 15.7 13.0 - 17.5 g/dL [facility] ([place]) Hct 44.8 38.9 - 50.3 % [facility] ([place]) Plt 235 150 - 400 K/cumm [facility] ([place]) MPV 8.4(L) 9.1 - 12.3 fL [facility] ([place]) RBC 5.35 4.30 - 5.80 M/cumm [facility] ([place]) MCV 83.7 81.3 - 96.4 fL [facility] ([place]) MCH 29.3 27.1 - 33.3 pg [facility] ([place]) MCHC 35.0 32.3 - 35.7 g/dL [facility] ([place]) RDW CV 11.9 11.1 - 14.9 % [facility] ([place]) RDW SD 36.5 35.7 - 48.1 fL [facility] ([place]) NRBC abs 0.00 0.00 - 0.01 K/cumm [facility] ([place]) Blood (Blood, Venous) 03/04/2024 5:32 PM CDT 03/04/2024 5:38 PM CDT Narrative [facility] ([place]) - 03/04/2024 5:42 PM CDT Potential Stroke Patient us Jenny Fierro MD LAB BLOOD ORDERABLES Final Result [facility]) 1 [facility] [place] [address] * aPTT (03/04/2024 5:32 PM CDT) aPTT 31 28 - 38 sec [facility] ([place]) Comment: Interpretive Data Heparin therapeutic range: 66.0 - 100.0 seconds. Range based on correlation with therapeutic heparin activity range of 0.3 - 0.7 Units/mL. Current interpretive data was last revised on 2023. Blood (Blood, Venous) 03/04/2024 5:32 PM CDT 03/04/2024 5:38 PM CDT Narrative [facility] ([place]) - 03/04/2024 5:54 PM CDT Potential stroke patient. us Jenny Fierro MD LAB BLOOD ORDERABLES Final Result LEESA ABRAMS (DEVENDRA) [address] [facility] [place] [address] * Erythrocyte sedimentation rate (03/04/2024 5:32 PM CDT) Pathologist [facility] Erythrocyte sedimentation rate 6 1 - 15 mm/hr Blood 03/04/2024 5:32 PM CDT 03/04/2024 6:13 PM CDT Jenny Fierro MD LAB BLOOD ORDERABLES Final Result Performing Organization Address [facility] Co de Phone Number LEESA ABRAMS (DEVENDRA) [address] [facility] [place] [address] * Protime-INR (03/04/2024 5:32 PM CDT) Pathologist [facility] PT 10.8 9.7 - 13.0 sec LEESA ABRAMS (DEVENDRA) INR 1.00 0.90 - 1.20 LEESA ABRAMS (DEVENDRA) Comment: Interpretive data Oral anticoagulant therapeutic ranges: Venous thromboembolism prophylaxis or treatment: 2.0-3.0 CARDIOLOGY Standard range: 2.0-3.0 High-intensity range: 2.5-3.5 Refer to indication-specific guidelines for appropriate target ranges for prosthetic heart valve replacement. Current interpretive data was last revised on 2019. Blood 03/04/2024 5:32 PM CDT 03/04/2024 5:38 PM CDT Jenny Fierro MD LAB BLOOD ORDERABLES Final Result Performing Organization Address City/[facility]/ZIP Co de Phone Number LEESA ABRAMS (DEVENDRA) 1 [facility] [place] [address] * Comprehensive metabolic panel (03/04/2024 5:32 PM CDT) Pathologist [facility] Sodium 135 135 - 145 mmol/L Potassium, pl 3.8 3.3 - 4.9 mmol/L LEESA ABRAMS (DEVENDRA) Chloride 101 97 - 110 mmol/L [facility] (DEVENDRA) CO2 24 22 - 32 mmol/L [...] 2022. Calcium 9.1 8.5 - 10.3 mg/dL [facility] ([facility] Bilirubin, total 0.4 0.1 - 1.2 mg/dL [facility] ([facility]) Protein, pl 7.5 6.5 - [...] CDT Narrative [facility] (DEVENDRA) - 03/04/2024 6:01 PM CDT Potential Stroke Patient us Jenny Fierro MD LAB BLOOD ORDERABLES Final Result [facility] (DEVENDRA) 1 [facility] Department [place] [address] * POCT glucose (03/04/2024 5:31 PM CDT) Glucose, POC 86 70 - 199 mg/dL Blood 03/04/2024 5:31 PM CDT 03/04/2024 5:31 PM CDT Senthil Pérez DO LAB POCT ORDERABLES - DEVICE Final Result [facility] (FIVE POIN[facility]) 1 [facility] Department [place] [address] from Last 3 Months Insurance [facility] [id number] Advance Directives For more information, please contact: [phone] * Full Code (Latest Code Status on [...] 11:03 AM 06/19/2023 4:59 PM Care Teams Home Visits Nurse Relationship Specialty Start Date End Date Selene Hodges NP [address] [place] [address] [place] [address] PCP - General Nurse Practitioner 10/31/24 Marcy Thomson PA Physician Metal Bonding Helper Orthopedic Surgery 06/24/19 Dante Fuentes MD [address] [place] [address] [place] [address] Consulting Physician Neurology 03/08/24
[2024-06-04 21:04] LABS: Lupus dRVVT Screen 26 sec (< OR = 45); PTT-LA Screen 29 sec (< OR = 40)
[2024-06-07 12:23] LABS: Homocysteine 7.9 umol/L (<11.4)
[2024-06-08 11:17] LABS: Protein S Antigen, Free 119 % normal (57-171)
[2024-06-09 04:23] LABS: Anti-Thrombin III Antigen 114 % normal (80-120)
== END 2024-06-03 11:28 | disposition home or self-care (01) ==
LOC: ANHLAB 11:28
PROVIDERS: PCP Nurse Practitioner Adult Health; Visit Provider Internal Medicine Hematology & Oncology
DX: D68.69 Other thrombophilia (principal)
CPT/HCPCS: 36415; 81240; 83090; 85301; 85303; 85306; 85613; 85730; 86146

== ENCOUNTER 2024-08-10 08:19 | Outpatient (CLI) | payer OTHER, SELFPAY ==
--- OUTSIDE RECORDS SUMMARY | 2024-08-10 08:25 | XMS_ITS | Clinical Summary ---
Author Organization [facility] Address [address] [address] Phone Care Team Providers Care Food Scientist Name Role Phone Eyad Morin MD Primary Care Provider [phone] Allergies Active Allergy Reactions Criticality Noted Date [...] Comments Blood Pressure 116/76 04/29/2023 4:06 PM PAINTER BOTTOM Pulse 88 04/29/2023 4:06 PM PAINTER BOTTOM Temperature 36.4 C (97.6 F) 04/29/2023 11:54 AM PAINTER BOTTOM Respiratory Rate 18 04/29/2023 4:06 PM PAINTER BOTTOM Oxygen Saturation 99% 04/29/2023 4:06 PM PAINTER BOTTOM Inhaled Oxygen Concentration - - Weight 76.2 kg (168 lb) 04/29/2023 11:54 AM PAINTER BOTTOM Height 177.8 cm (5' 10 ) 04/29/2023 11:54 AM PAINTER BOTTOM Body Mass Index 24.11 04/29/2023 11:54 AM PAINTER BOTTOM Plan of Treatment Health Maintenance Due Date Last Done Comments Hepatitis C Virus (HCV) Screening 1980 Hepatitis B Immunization (1 of 3 - 19+ 3-dose series) 07/12/1999 Influenza Immunization (#1) 01/04/202403/05, 03/19/2018, 02/11/2014, Additional history exists SARS-COV-2 Immunization ( - 2023- season) 2024 Respiratory Syncytial Virus (RSV) Immunization [...] patient's age to complete this topic Insurance Care Teams Food Scientist Relationship Specialty Start Date End Date Eyad Morin MD [address] [facility] [address] [place] [place] [id number] PCP - General Help Desk Team Leader 04/29/23
--- OUTSIDE RECORDS SUMMARY | 2024-08-10 08:25 | XMS_ITS | Clinical Summary ---
Author Organization [facility] Gibran Roman Address [address] [place] [address] Care Team Providers Care Weaver Needle Loom Name Role Phone Unavailable Primary Care Provider [...] Encounters Date Type Department Care Team Description 06/29/2024 External Device Data STL ABSTRACTION Provider, Abstract 06/17/2024 4:30 PM DIRECTOR OF GRANTS Telephone Check Up [facility] Oncology and Hematology - [place] [address] [place] [address] Issa Porras MD 06/16/2024 Telephone [facility] - [place] [address] [place] [address] Issa Porras MD labs for appt 06/15/2024 Abstract [facility] - [place] [address] [place] [address] Issa Porras MD 06/08/2024 External Device Data STL ABSTRACTION Provider, Abstract 06/08/2024 External Device Data STL ABSTRACTION Provider, Abstract 06/08/2024 External Device Data STL ABSTRACTION Provider, Abstract 06/07/2024 Orders Only [facility] [address] [place] [address] Issa Porras MD 06/04/2024 Abstract [facility] [place] [address] [place] [address] Issa Porras MD 06/03/2024 10:30 AM DIRECTOR OF GRANTS Office Visit [facility] [address] [place] [address] Issa Porras MD Secondary hypercoagulable state (Primary [...] on file Legal Sex Male 12:50 PM DIRECTOR OF GRANTS Gender Identity Not on file Sexual Orientation Not on file Last Filed Vital Signs Vital Sign Reading Time Taken Comments Blood Pressure 138/96 06/03/2024 10:34 AM DIRECTOR OF GRANTS Pulse 72 06/03/2024 10:30 AM DIRECTOR OF GRANTS Temperature 36.2 C (97.2 F) 06/03/2024 10:30 AM DIRECTOR OF GRANTS Respiratory Rate 17 06/03/2024 10:30 AM DIRECTOR OF GRANTS Oxygen Saturation 97% 06/03/2024 10:30 AM DIRECTOR OF GRANTS Inhaled Oxygen Concentration - - Weight 73.3 kg (161 lb 9.6 oz) 06/03/2024 10:30 AM DIRECTOR OF GRANTS Height 177.8 cm (5' 10 ) 06/03/2024 10:30 AM DIRECTOR OF GRANTS Body Mass Index 23.19 06/03/2024 10:30 AM DIRECTOR OF GRANTS Plan of Treatment Health Maintenance Due Date Last Done Comments HEPATITIS B VACCINES (1 of 3 - 19+ 3-dose series) 07/12/1999 DTAP/TDAP/TD VACCINES (2 - T d or Tdap) 12/04/2019 12/03/2009 INFLUENZA VACCINE (#1) 2023 8, 02/11/2014 Preventative Visit- Commercial 05/05/2024 HPV VACCINES Aged Out No longer eligi ble based on patient's age to complete this topic Procedures Procedure Name Priority Date/Time Associated Diagnosis Comments BASIC METABOLIC PANEL Routine 06/04/2024 8:37 AM DIRECTOR OF GRANTS LUPUS ANTICOAGULANT DRVVT Routine 2024 8:16 AM DIRECTOR OF GRANTS from Last 3 Months Results * BASIC METABOLIC PANEL (06/04/2024 8:37 AM DIRECTOR OF GRANTS) Blood Issa Porras MD CHEMISTRY ORDERABLES Final Resu lt * LUPUS ANTICOAGULANT DRVVT (06/03/2024 8:16 AM DIRECTOR OF GRANTS) Blood Issa Porras MD HEMATOLOGY ORDERABLES Final Res ult from Last 3 Months Insurance [employer] O OPEN ACCESS
--- OUTSIDE RECORDS SUMMARY | 2024-08-10 08:25 | XMS_ITS | Clinical Summary ---
Author Organization [facility] Address [address] [place] [address] Care Team Providers Care Mechanic/Welder Name Role Phone Marcy Thomson Unavailable Selene Hodges NP Primary Care Provider [phone] Edwin Fuentes MD Unavailable [phone] Allergies Active Allergy Reactions Criticality Noted Date [...] 05/15/2023 Assessment & Plan (05/28/2023 5:36 PM VITAMIN MANAGER): Chronic abdominal pain. No worrisome signs at this point. I wonder if this is related to his constipation plus multiple musculoskeletal issues. Will re-evaluate next visit. Chronic constipation 05/15/2023 Assessment & Plan (08/24/2023 6:03 PM CDT): Doing well overall. Continue Milk of Magnesia daily or as needed. Assessment & Plan (05/28/2023 5:37 PM VITAMIN MANAGER): Start milk of magnesium daily. Stop dicyclomine and tramadol. Paff-ikb-emabnby glycerin suppositories. Schedule colonoscopy. Follow up after the colonoscopy. Rectal pain 05/15/2023 Assessment & Plan (05/28/2023 5:37 PM VITAMIN MANAGER): Patient complains of hemorrhoid problems. We will re-evaluate during the colonoscopy. History of kidney stones 03/20/2023 Mixed hyperlipidemia 03/20/2023 Assessment & Plan (05/06/2023 9:43 AM VITAMIN MANAGER): Lab Results Component Value Date CHOL 193 [...] (06/14/2019): Added automatically from request for surgery [id number] Impingement syndrome of left shoulder 06/14/2019 Overview (06/14/2019): Added automatically from request for surgery [id number] Arthritis of left acromioclavicular joint 2019 Overview (06/14/2019): Added automatically from request for surgery [id number] Neuropathy, arm, left 06/30/2017 Elevated LFTs 06/09/2017 Cervicalgia 11/11/2016 Prolonged posttraumatic stress disorder 10/18/19 17 Panic attack as reaction to stress 08/12/2016 Depression 05/17/2016 Anxiety 05/09/2016 Assessment & Plan (03/20/2023 1:35 PM VITAMIN MANAGER): [facility] - currently [facility] tin [facility] to [facility] Also taking clonidine for sleep but it doesn't seem to help Gastroesophageal reflux disease without esophagi tis 05/09/2016 Insomnia 05/09/2016 Kidney stones 05/09/2016 Assessment & Plan (03/20/2023 1:33 PM VITAMIN MANAGER): Has hx of stones But also hx and famil history of hematuria Recurrent pain of right knee 05/09/2016 Overview (01/30/2017): Overview: Dr Wayne History of steroid shots Low back pain 04/27/2015 Overview (08/08/2016): Lumbago Assessment & Plan (05/06/2023 9:41 AM VITAMIN MANAGER): Worsening sx Start flexeril Xray now Referral [...] Encounters Date Type Department Care Team Description 06/16/2024 10:00 AM [facility] Therapy [facility] Occupational Therapy [address] [place] [id number] Chapis Mahoney, OT CVA (cerebrovascular accident due to intracerebral hemorrhage) (HCC) (Primary Dx) 06/10/2024 10:45 AM VITAMIN MANAGER Therapy [facility] Occupational Therapy [address] [place] [address] Chapis Mahoney, OT CVA (cerebrovascular accident due to intracerebral hemorrhage) (HCC) (Primary Dx) 06/01/2024 11:15 AM [facility] Therapy [facility] Occupational Therapy [address] [place] [address] Chapis Mahoney, OT CVA (cerebrovascular accident due to intracerebral hemorrhage) (HCC) (Primary Dx) 05/27/2024 10:45 AM VITAMIN MANAGER Therapy [facility] Occupational Therapy [address] [place] [address] Chapis Mahoney, OT CVA (cerebrovascular accident due to intracerebral hemorrhage) (HCC) (Primary Dx) 05/25/2024 10:15 AM VITAMIN MANAGER Therapy [facility] Occupational Therapy [address] [place] [address] Chapis Mahoney, OT CVA (cerebrovascular accident due to intracerebral hemorrhage) (HCC) (Primary Dx) 05/20/2024 11:30 AM VITAMIN MANAGER Therapy [facility] Occupational Therapy [address] [place] [address] Chapis Mahoney, OT CVA (cerebrovascular accident due to intracerebral hemorrhage) (HCC) (Primary Dx) 05/18/2024 10:15 AM VITAMIN MANAGER Therapy [facility] Occupational Therapy [address] [place] [address] Chapis Mahoney, OT CVA (cerebrovascular accident due to intracerebral hemorrhage) (HCC) (Primary Dx) 05/13/2024 10:30 AM VITAMIN MANAGER Therapy [facility] Occupational Therapy [address] [place] [address] Chapis Mahoney, OT CVA (cerebrovascular accident due to intracerebral hemorrhage) (HCC) (Primary Dx) from Last 3 Months Immunizations Immunization Administration Dates Next Due Influenza, Quadrivalent, Spl [...] f or me ; last sleep study 2019 Stroke (HCC) Family History Medical History Relation [...] = 0.6 oz pur e alcohol) occasionally [facility] Utilities Answer Date Recorded In the past [...] week 03/18/2024 How often do you attend [facility] or druze services? More than 4 times per year 03/18/2024 Do you belong to any clubs o r organizations such as sikhism groups, unions, fraternal or athletic groups, or [...] staff should administer the PHQ-9) 1 03/18/2024 [facility] Occupat ional [facility] - Occupational Stress Questionnaire Answer Date Recorded [...] things needed for daily living? No 03/18/2024 PHQ-9 Answer Date Recorded PHQ-9 Total Score 1 03/18/2024 Housing Stability Vital Sign Answer Temo e Recorded In the last 12 months, was t here a time when you were not able to pay the mortgage or rent on time? No 03/18/2024 In the past 12 months, how m any times have you moved where you were living? 0 03/18/2024 At any time in the past 12 m [facility], were you homeless or living in a group home (including now)? No 03/18/2024 Personal Safety Answer [...] on file Legal Sex Male 5:28 PM VITAMIN MANAGER Gender Identity Not on file Sexual Orientation Not on file Obstetrics History Last Filed Vital Signs Vital Sign Reading Time Taken Comments Blood Pressure 124/76 03/30/2024 1:40 PM VITAMIN MANAGER Pulse 84 03/30/2024 1:40 PM VITAMIN MANAGER Temperature 36.3 C (97.4 F) 03/18/2024 11:00 AM VITAMIN MANAGER Respiratory Rate 18 03/18/2024 8:03 AM VITAMIN MANAGER Oxygen Saturation 96% 03/30/2024 1:40 PM VITAMIN MANAGER Inhaled Oxygen Concentration - - Weight 76.1 kg (167 lb 12.8 oz) 03/30/2024 1:40 PM VITAMIN MANAGER Height 180.3 cm (5' 10.98 ) 03/30/2024 1:[address] Body Mass Index 23.41 03/30/2024 1:40 PM VITAMIN MANAGER Plan of Treatment Health Maintenance Due [...] this topic Medical Devices Implanted Type Area Paid Search Marketing Strategist Device Identifier Shelf Expiration Date Model / Serial / Lot Kit Implant Mobi-C Titanium Cocrmo Uhmwpe Lopez D15 Mm W17 Mm X H5 Mm Cervical Spinal Plate Insert Disk - [facility] [id number] - [id number] Implanted:Qty: 1 on 06/30/2017 by David Simmons MD at [facility] Other - see comments N/A: Cervical-Melany mbar Spine Jose Enrique Spine 10/03/2021 [id number] / [id number] / [id number] Description:Mobi-c Cervical Disc Prosthesis Titanium Screw Distraction Hazen L14 Mm Cervical Pin Sterile - [id number] Implanted:Qty: 1 on 06/30/2017 at [facility] [employer] 03/03/2020 [id number] / / [id number] Ar[employer] Inc Ar-8990st Arthrex Dx Fibertak Needle [place] Suture Sterile Latex Free - [id number] Implanted:Qty: 1 on 06/24/2019 by Kevin Appiah MD at [facility] Left: Shoulder [employer] Inc 05/04/2024 AR-8990S T / / [id number] Medtronic Inc Protege Gps Exprt 10/7mm 6fr 40mm 135cm Rapid Exchange Self Hjnz-43-1-40-1 35 - [id number] Implanted:Qty: 1 on 12/01/2023 at [facility] Med[employer] Inc 03/11/2024 SECX-10- 7-40-135 / / [id number] [employer]. Angio-Seal Vip Bondek-Plus 8fr .038in 70cm Hemostatic Latex Free [id number] - [id number] Implanted:Qty: 1 on 12/01/2023 at [facility] [employer]. 08/18/2024 [id number] / / [id number] Explanted Type Area Paid Search Marketing Strategist Device Identifier Shelf Expiration Date Model / Serial / Lot Pin Distraction Hazen L12 Mm Self Drill Sterile Cervical Distractor System - [id number] Explanted:Qty: 1 on 06/30/2017 at [facility] Implant Systems [id number] / / Pin Distraction Hazen L12 Mm Self Drill Sterile Cervical Distractor System - [id number] Explanted:Qty: 1 on 06/30/2017 at [facility] Im[employer] Systems [id number] / / Insurance [facility] [facility] [id number] Member Subscriber Plan / Payer (Ef fective 2020-Present) Name:Edwin Lopez Member ID:[id number] Relation to Subscriber:Self Name:Edwin Lopez Subscriber ID:[id number] Payer ID:[id number] Type:[employer] HMO/PPO Address: [facility] [address] [place] [address] Advance Directives For more information, please contact: [phone] * Full Code (Latest Code Status on [...] 11:03 AM 06/19/2023 4:59 PM Care Teams Mechanic/Welder Relationship Specialty Start Date End Date Selene Hodges NP [facility] [place] [address] PCP - General Nurse Practitioner 03/04/24 Marcy Thomson PA Physician Back Pad Inspector Orthopedic Surgery 06/24/19 Edwin Fuentes MD [address] [place] [address] [place] [address] Consulting Physician Neurology 03/08/24
--- OUTSIDE RECORDS SUMMARY | 2024-08-10 08:25 | XMS_ITS | Referral Summary ---
Author Organization [facility] Address [address] [place] [address] Care Team Providers Care Plasma Processing Centrifuge Operator Name Role Phone Berto Marcy GILLESPIE Unavailable [phone] Selene Hodges NP Primary Care Provider [phone] Edwin Fuentes MD Unavailable [phone] Encounters Date Type Department Care Team Description 06/16/2024 10:00 AM ADVISORY INTERNSHIP Therapy [facility] [address] [place] [phone] Chapis Mahoney, OT CVA (cerebrovascular accident due to intracerebral hemorrhage) (HCC) (Primary Dx) 06/10/2024 10:45 AM ADVISORY INTERNSHIP Therapy [facility] [address] [place] [address] [phone] Chapis Mahoney OT CVA (cerebrovascular accident due to intracerebral hemorrhage) (HCC) (Primary Dx) 06/01/2024 11:15 AM ADVISORY INTERNSHIP Therapy [facility] [address] [place] [address] [phone] Chapis Mahoney OT CVA (cerebrovascular accident due to intracerebral hemorrhage) (HCC) (Primary Dx) 05/27/2024 10:45 AM ADVISORY INTERNSHIP Therapy [facility] [address] [place] [address] [phone] Chapis Mahoney, OT CVA (cerebrovascular accident due to intracerebral hemorrhage) (HCC) (Primary Dx) 05/25/2024 10:15 AM ADVISORY INTERNSHIP Therapy [facility] [address] [place] [address] [phone] Chapis Mahoney, OT CVA (cerebrovascular accident due to intracerebral hemorrhage) (HCC) (Primary Dx) 05/20/2024 11:30 AM ADVISORY INTERNSHIP Therapy [facility] [address] [place] [address] [phone] Chapis Mahoney, OT CVA (cerebrovascular accident due to intracerebral hemorrhage) (HCC) (Primary Dx) 05/18/2024 10:15 AM ADVISORY INTERNSHIP Therapy [facility] [address] [place] [phone] Chapis Mahoney, OT CVA (cerebrovascular accident due to intracerebral hemorrhage) (HCC) (Primary Dx) 05/13/2024 10:30 AM ADVISORY INTERNSHIP Therapy [facility] [address] [place] [address] [phone] Chapis Mahoney, OT CVA (cerebrovascular accident due [...] 05/15/2023 Assessment & Plan (05/28/2023 5:36 PM ADVISORY INTERNSHIP): Chronic abdominal pain. No worrisome signs at this point. I wonder if this is related to his constipation plus multiple musculoskeletal issues. Will re-evaluate next visit. Chronic constipation 05/15/2023 Assessment & Plan (08/24/2023 6:03 PM CDT): Doing well overall. Continue Milk of Magnesia daily or as needed. Assessment & Plan (05/28/2023 5:37 PM ADVISORY INTERNSHIP): Start milk of magnesium daily. Stop dicyclomine and tramadol. Ffpq-cue-agcfzrm glycerin suppositories. Schedule colonoscopy. Follow up after the colonoscopy. Rectal pain 05/15/2023 Assessment & Plan (05/28/2023 5:37 PM ADVISORY INTERNSHIP): Patient complains of hemorrhoid problems. We will re-evaluate during the colonoscopy. History of kidney stones 03/20/2023 Mixed hyperlipidemia 03/20/2023 Assessment & Plan (05/06/2023 9:43 AM ADVISORY INTERNSHIP): Lab Results Component Value Date CHOL 193 [...] (06/14/2019): Added automatically from request for surgery [id number] Impingement syndrome of left shoulder 06/14/2019 Overview (06/14/2019): Added automatically from request for surgery [id number] Arthritis of left acromioclavicular joint 2019 Overview (06/14/2019): Added automatically from request for surgery [id number] Neuropathy, arm, left 06/30/2017 Elevated LFTs 06/09/2017 Cervicalgia 11/11/2016 Prolonged posttraumatic stress disorder 10/18/19 17 Panic attack as reaction to stress 08/12/2016 Depression 05/17/2016 Anxiety 05/09/2016 Assessment & Plan (03/20/2023 1:35 PM ADVISORY INTERNSHIP): [facility] Also taking clonidine for sleep but it doesn't seem to help Gastroesophageal reflux disease without esophagi tis 05/09/2016 Insomnia 05/09/2016 Kidney stones 05/09/2016 Assessment & Plan (03/20/2023 1:33 PM ADVISORY INTERNSHIP): Has hx of stones But also hx and famil history of hematuria Recurrent pain of right knee 05/09/2016 Overview (01/30/2017): Overview: Dr Wayne History of steroid shots Low back pain 04/27/2015 Overview (08/08/2016): Lumbago Assessment & Plan (05/06/2023 9:41 AM ADVISORY INTERNSHIP): Worsening sx Start flexeril Xray now Referral [...] (08/08/2016): Adjustment reaction of adult life Immunizations Immunization Administration Dates Next Due Influenza, [...] = 0.6 oz pur e alcohol) occasionally [facility] [employer] Answer Date Recorded In the past 12 months has [employer], gas, oil, or water [email or web address] threatened to shut off services in your [...] week 03/18/2024 How often do you attend chur or druze services? More than 4 times per year 03/18/2024 Do you belong to any clubs o r organizations such as taoism groups, unions, fraternal or athletic groups, or [...] staff should administer the PHQ-9) 1 03/18/2024 [facility] - Occupational Stress Questionnaire Answer [...] any time in the past 12 m [facility], were you homeless or living in a longterm (including now)? No 03/18/2024 Personal Safety Answer [...] on file Legal Sex Male 5:28 PM ADVISORY INTERNSHIP Gender Identity Not on file Sexual Orientation Not on file Last Filed Vital Signs Vital Sign Reading Time Taken Comments Blood Pressure 124/76 03/30/2024 1:40 PM ADVISORY INTERNSHIP Pulse 84 03/30/2024 1:40 PM ADVISORY INTERNSHIP Temperature 36.3 C (97.4 F) 03/18/2024 11:00 AM ADVISORY INTERNSHIP Respiratory Rate 18 03/18/2024 8:03 AM ADVISORY INTERNSHIP Oxygen Saturation 96% 03/30/2024 1:40 PM ADVISORY INTERNSHIP Inhaled Oxygen Concentration - - Weight 76.1 kg (167 lb 12.8 oz) 03/30/2024 1:40 PM ADVISORY INTERNSHIP Height 180.3 cm (5' 10.98 ) 03/30/2024 1:[address] Body Mass Index 23.41 03/30/2024 1:40 PM ADVISORY INTERNSHIP Plan of Treatment Not on file Medical Devices Implanted Type Area Door Core Assembler Device Identifier Shelf Expiration Date Model / Serial / Lot Kit Implant Mobi-C Titanium Cocrmo Uhmwpe Lopez D15 Mm W17 Mm X H5 Mm Cervical Spinal Plate Insert Disk - Sref [id number] - [id number] Implanted:Qty: 1 on 06/30/2017 by David Simmons MD at [facility] Other - see comments N/A: Cervical-Melany mbar Spine Jose Enrique Spine 10/03/2021 [id number] / REF [id number] / [id number] Description:Mobi-c Cervical Disc Prosthesis Titanium Screw Distraction [place] L14 Mm Cervical Pin Sterile - [id number] Implanted:Qty: 1 on 06/30/2017 at [facility] Jose Enrique [employer] Inc 03/03/2020 0024-LDR / / [id number] Arthrex Inc Ar-8990st Arthrex Dx Fibertak Needle [place] Suture Sterile Latex Free - [id number] Implanted:Qty: 1 on 06/24/2019 by Kevin Appiah MD at [facility] Left: Shoulder Arthrex Inc 05/04/2024 AR-8990S T / / [id number] Medtronic Inc Protege Gps Exprt 10/7mm 6fr 40mm 135cm Rapid Exchange Self [id number]-93-9-40-1 35 - [id number] Implanted:Qty: 1 on 12/01/2023 at [facility] Medtronic Inc 03/11/2024 SECX-10- 7-40-135 / / [id number] [facility] [facility] Angio-Seal Vip Bondek-Plus 8fr .038in 70cm Hemostatic Latex Free [id number] - [id number] Implanted:Qty: 1 on 12/01/2023 at [facility] 08/18/2024 [id number] / / [id number] Explanted Type Area Door Core Assembler Device Identifier Shelf Expiration Date Model / Serial / Lot Pin Distraction [place] L12 Mm Self Drill Sterile Cervical Distractor System - [id number] Explanted:Qty: 1 on 06/30/2017 at [facility] Implant Systems [id number] / / Pin Distraction [place] L12 Mm Self Drill Sterile Cervical Distractor System - [id number] Explanted:Qty: 1 on 06/30/2017 at [facility] Implant Systems [id number] / / Insurance [facility] [id number] Advance Directives For more information, please contact: [phone] * Full Code (Latest Code Status on [...] 11:03 AM 06/19/2023 4:59 PM Care Teams Plasma Processing Centrifuge Operator Relationship Specialty Start Date End Date Selene Hodges NP [address] [place] [address] [place] [address] PCP - General Nurse Practitioner 03/04/24 Marcy Thomson PA Physician Boiler House Mechanic Orthopedic Surgery 06/24/19 Edwin Fuentes MD [address] [place] [address] [place] [address] Consulting Physician Neurology 03/08/24
--- NOTE | 2024-08-10 08:47 | EST_ITS ---
Patient Info Name: Edwin Holguin Age: 44 years : 1980 Gender: Male Ht: 70 in Wt: 155 lbs BSA: 1.86 m2 HR: 57 bpm BP: 117 / 83 mmHg Exam Date: 08/10/2024 9:05 AM Exam Location: Echo Lab Patient Status: Outpatient Admit Date: 08/10/2024 Staff Ordering Physician: Kenneth Muhammad DO Attending Provider: Kenneth Muhammad DO Exercise Technologist: angy arvizu Exercise Physician: Kenneth Muhammad DO Exam Type: CA stress test treadmill Study Info Indications - genetic susceptibility to other disease A treadmill exercise stress test was performed. Summary 1. 1. Negative Javier exercise stress test for ischemic ST changes by ECG criteria. 2. 2. Good functional capacity, achieving 10 METs of workload. 3. 3. Appropriate HR response to exercise. 4. 4. Appropriate HR recovery at 1 minute post exercise. 5. 5. No imaging with stress testing. 6. 6. Patient informed of the above results. Protocol: Javier Stress ECG Details Stage: REST Duration (min): 4 min : 43 sec Speed (mph): 0.0 Grade (%): 0 HR (bpm): 57 SBP (mmHg): 117 DBP (mmHg): 83 METS: --- Stage: REST Duration (min): 11 min : 3 sec Speed (mph): 0.0 Grade (%): 0 HR (bpm): 72 SBP (mmHg): 117 DBP (mmHg): 83 METS: --- Stage: STAGE 1 Duration (min): 1 min : 0 sec Speed (mph): 1.7 Grade (%): 10 HR (bpm): 90 SBP (mmHg): 117 DBP (mmHg): 83 METS: --- Stage: STAGE 1 Duration (min): 2 min : 0 sec Speed (mph): 1.7 Grade (%): 10 HR (bpm): 95 SBP (mmHg): 117 DBP (mmHg): 83 METS: --- Stage: STAGE 1 Duration (min): 3 min : 0 sec Speed (mph): 1.7 Grade (%): 10 HR (bpm): 96 SBP (mmHg): 129 DBP (mmHg): 68 METS: --- Stage: STAGE 2 Duration (min): 1 min : 0 sec Speed (mph): 2.5 Grade (%): 12 HR (bpm): 103 SBP (mmHg): 129 DBP (mmHg): 68 METS: --- Stage: STAGE 2 Duration (min): 2 min : 0 sec Speed (mph): 2.5 Grade (%): 12 HR (bpm): 111 SBP (mmHg): 134 DBP (mmHg): 66 METS: --- Stage: STAGE 2 Duration (min): 3 min : 0 sec Speed (mph): 2.5 Grade (%): 12 HR (bpm): 115 SBP (mmHg): 134 DBP (mmHg): 66 METS: --- Stage: STAGE 3 Duration (min): 1 min : 0 sec Speed (mph): 3.4 Grade (%): 14 HR (bpm): 131 SBP (mmHg): 153 DBP (mmHg): 66 METS: --- Stage: STAGE 3 Duration (min): 2 min : 0 sec Speed (mph): 3.4 Grade (%): 14 HR (bpm): 144 SBP (mmHg): 153 DBP (mmHg): 66 METS: --- Stage: STAGE 3 Duration (min): 3 min : 0 sec Speed (mph): 3.4 Grade (%): 14 HR (bpm): 148 SBP (mmHg): 153 DBP (mmHg): 66 METS: --- Stage: RECOVERY Duration (min): 1 min : 0 sec Speed (mph): 0.0 Grade (%): 0 HR (bpm): 120 SBP (mmHg): 153 DBP (mmHg): 66 METS: --- Stage: RECOVERY Duration (min): 1 min : 17 sec Speed (mph): 0.0 Grade (%): 0 HR (bpm): 113 SBP (mmHg): 153 DBP (mmHg): 66 METS: --- Rest HR: 72 bpm Peak HR: 155 bpm Rest Sys BP: 117 mmHg Peak Sys BP: 153 mmHg Max Pred HR: 176 bpm % Max Pred HR: 88 % Target HR: 150 bpm Max RPP: 23,715 bpm*mmHg Fatima Score: -11 Termination Reason: Reached target heart rate or workload Cardiac Symptoms: Shortness of breath, Baseline CP 1/10 that resolved with exercise Max ST Seg Deviation: -4.00 mm Total Time: 9 min : 0 sec Rest Miller BP: 83 mmHg Peak Miller BP: 66 mmHg Angina Score: None Total METS: 10.3 Resting ECG Sinus rhythm. Stress ECG No ST changes. Arrhythmias None. Report Signatures
== END 2024-08-10 08:20 | disposition home or self-care (01) ==
LOC: ANHCARD 08:20
PROVIDERS: PCP Nurse Practitioner Adult Health; Visit Provider Internal Medicine Cardiovascular Disease
DX: Z15.89 Genetic susceptibility to other disease (principal)
CPT/HCPCS: 93017

== ENCOUNTER 2025-03-02 09:07 | Outpatient (CLI) | payer OTHER, SELFPAY ==
--- OUTSIDE RECORDS SUMMARY | 2025-03-02 09:47 | XMS_ITS | Clinical Summary ---
Author Organization [facility] Address [address] [place] [address] Care Team Providers Care Dance Professor Name Role Phone Marcy Thomson Unavailable [phone] Selene Hodges NP Primary Care Provider [phone] Edwin Fuentes MD Unavailable Allergies Active Allergy Reactions Criticality Noted Date Comments Antipyrine Nausea & Vomiting Low 06/24/2018 Nsaids (Non-Steroidal Anti-Inflammatory Drug) Diarrhea,Nausea only,Other (See comments),Nausea And Vomiting Low 06/24/2018 Also, blood in stool, and extreme abdominal pain Bupropion Anaphylaxis High Reaction: Rash, Medications aspirin 81 mg chewable tablet Take 1 tablet (81 mg total) by mouth daily 12/09/2023 Active ticagrelor (BRILINTA) 60 mg tablet Take [...] Active Problems Problem Noted Date Diagnosed Date Hemiparesis affecting left s sukhjinder as late effect of cerebrovascular accident (CVA) 10/04/2024 Acute nonintractable headache 03/18/2024 H/O ischemic right MCA stroke 03/17/2024 Cerebrovascular accident (CV A) due to embolism of precerebral artery 03/16/2024 CVA (cerebrovascular acciden t due to intracerebral hemorrhage) 03/05/2024 Difficulty balancing 03/02/2024 Exposure to potentially hazardous substance 02/03 Gastro-esophageal reflux dis ease with esophagitis, without bleeding 03/02/2024 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 No worrisome signs at this point. I wonder if this is related to his constipation plus multiple musculoskeletal issues. Will re-evaluate next visit. Chronic constipation 05/15/2023 Assessment & Plan (08/24/2023 6:03 PM CDT): Doing well overall. Continue Milk of Magnesia daily or as needed. Assessment & Plan (05/28/2023 5:37 PM FLOOR FINISHER): Start milk of magnesium daily. Stop dicyclomine and tramadol. Jzgz-aqy-mloygbl glycerin suppositories. Schedule colonoscopy. Follow up after the colonoscopy. Rectal pain 05/15/2023 Assessment & Plan (05/28/2023 5:37 PM FLOOR FINISHER): Patient complains of hemorrhoid problems. We will re-evaluate during the colonoscopy. History of kidney stones 03/20/2023 Mixed hyperlipidemia 03/20/2023 Assessment & Plan (05/06/2023 9:43 AM FLOOR FINISHER): Lab Results Component Value Date CHOL 193 [...] (06/14/2019): Added automatically from request for surgery [id number] Impingement syndrome of left shoulder 06/14/2019 Overview (06/14/2019): Added automatically from request for surgery [id number] Arthritis of left acromioclavicular joint 2019 Overview (06/14/2019): Added automatically from request for surgery [id number] Neuropathy, arm, left 06/30/2017 Elevated LFTs 06/09/2017 Cervicalgia 11/11/2016 Prolonged posttraumatic stress disorder 10/18/19 17 Panic attack as reaction to stress 08/12/2016 Depression 05/17/2016 Anxiety 05/09/2016 Assessment & Plan (03/20/2023 1:35 PM FLOOR FINISHER): [facility] - [facility] Also taking clonidine for sleep but it doesn't seem to help Gastroesophageal reflux disease without esophagi tis 05/09/2016 Insomnia 05/09/2016 Kidney stones 05/09/2016 Assessment & Plan (03/20/2023 1:33 PM FLOOR FINISHER): Has hx of stones But also hx and famil history of hematuria Recurrent pain of right knee 05/09/2016 Overview (01/30/2017): Overview: Dr Wayne History of steroid shots Low back pain 04/27/2015 Overview (08/08/2016): Lumbago Assessment & Plan (05/06/2023 9:41 AM FLOOR FINISHER): Worsening sx Start flexeril Xray now Referral [...] Encounters Date Type Department Care Team Description 01/17/2025 1:00 PM CDT Office Visit [facility] Medicine Orthopaedic Surgery [address] [facility] [address] [place] [address] [place] [address] Tam Dubon MD PhD H/O ischemic right MCA stroke (Primary Dx); Hemiparesis affecting left side as late effect of cerebrovascular accident (CVA) (HCC); Anxiety; 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 No 03/18/2024 Social Connection and Isolation Panel Answer Date Recorded In a typical week, how many times do you talk on the phone with family, friends, or neighbors? More than three times a week 03/18/2024 How often do you get togethe r with friends or relatives? More than three times a week 03/18/2024 How often do you attend [facility] or mosque services? More than 4 times per year 03/18/2024 Do you belong to any clubs o r organizations such as synagogue groups, unions, fraternal or athletic groups, or [...] staff should administer the PHQ-9) 1 03/18/2024 [facility] - Occupational Stress Questionnaire Answer Date Recorded [...] any time in the past 12 m [facility], were you homeless or living in a intermediate (including now)? No 03/18/2024 Personal Safety Answer Date Recorded Have you ever been in or are you currently in a harmful physical or emotional relationship or is someone making you feel afraid or unsafe? Denies 09/23/2024 Education Answer Date Recorded What is the highest level of school you have completed or the highest degree you have received? Some college, no degree 03/17/2024 Sex and Gender Information Value Date Recorded Sex Assigned at Not on file Legal Sex Male 5:28 PM FLOOR FINISHER Gender Identity Not on file Sexual Orientation Not on file Obstetrics History Last Filed Vital Signs Vital Sign Reading Time Taken Comments Blood Pressure 114/87 01/17/2025 1:02 PM CDT Pulse 75 01/17/2025 1:02 PM CDT Temperature 36.4 C (97.5 F) 09/23/2024 5:31 AM CDT Respiratory Rate 20 09/23/2024 10:16 PM CDT Oxygen Saturation 97% 09/23/2024 10:16 PM CDT Inhaled Oxygen Concentration - - Weight 82.1 kg (181 lb) 01/17/2025 1:02 PM CDT Height 180.1 cm (5' 10.9) 10/04/2024 11:30 AM C DT Body Mass Index 25.32 10/04/2024 11:30 AM CDT Plan of Treatment Health Maintenance Due Date Last Done Comments Hepatitis C Screening 1980 Varicella Vaccines (1 of 2 - 13+ 2-dose series) 1993 Hepatitis B Screening 1998 Regular Well Visit/Exam 18-64 1998 HPV Vaccines (1 - 3-dose SCDM series) 07/12/2007 DTaP/Tdap/Td Vaccine (2 - Td or Tdap) 12/04/2019 12/03/2009 Influenza Vaccine (#1) 2025 8, 03/19/2018, 02/11/2014, Additional history exists Depression Screening 03/18/2025 03/18/2024, 12/01/2023, 05/06/2023, Additional history exists Pneumococcal vaccine <65 Aged Out No longer eligible based on patient's age to complete this topic Medical Devices Implanted Type Area Ring Stamper Device Identifier Shelf Expiration Date Model / Serial / Lot Kit Implant Mobi-C Titanium Cocrmo Uhmwpe Lopez D15 Mm W17 Mm X H5 Mm Cervical Spinal Plate Insert Disk - Sref [id number] - [id number] Implanted:Qty: 1 on 06/30/2017 by David Simmons MD at [facility] Other - see comments N/A: Cervical-Melany mbar Spine Jose Enrique Spine 10/03/2021 [id number] / REF [id number] / [id number] Description:Mobi-c Cervical Disc Prosthesis Titanium Screw Distraction [place] L14 Mm Cervical Pin Sterile - [id number] Implanted:Qty: 1 on 06/30/2017 at [facility] Jose Enrique [employer] Inc 03/03/2020 0024-LDR / / [id number] Arthrex Inc Ar-8990st Arthrex Dx Fibertak Needle [place] Suture Sterile Latex Free - [id number] Implanted:Qty: 1 on 06/24/2019 by Kevin Appiah MD at [facility] Left: Shoulder Arthrex Inc 05/04/2024 AR-8990S T / / [id number] Medtronic Inc Protege Gps Exprt 10/7mm 6fr 40mm 135cm Rapid Exchange Self [id number]-97-8-40-1 35 - [id number] Implanted:Qty: 1 on 12/01/2023 at [facility] Medtronic Inc 03/11/2024 SECX-10- 7-40-135 / / [id number] [employer] Angio-Seal Vip Bondek-Plus 8fr .038in 70cm Hemostatic Latex Free [id number] - [id number] Implanted:Qty: 1 on 12/01/2023 at [facility] [employer] 08/18/2024 [id number] / / [id number] Explanted Type Area Ring Stamper Device Identifier Shelf Expiration Date Model / Serial / Lot Pin Distraction [place] L12 Mm Self Drill Sterile Cervical Distractor System - [id number] Explanted:Qty: 1 on 06/30/2017 at [facility] Implant Systems [id number] / / Pin Distraction [place] L12 Mm Self Drill Sterile Cervical Distractor System - [id number] Explanted:Qty: 1 on 06/30/2017 at [facility] Implant Systems [id number] / / Insurance [facility] [id number] Advance Directives For more information, please contact: [phone] * Full Code (Latest Code Status on [...] 11:03 AM 06/19/2023 4:59 PM Care Teams Dance Professor Relationship Specialty Start Date End Date Selene Hodges NP [facility] [place] [address] PCP - General Nurse Practitioner 03/04/24 Marcy Thomson PA Physician Motion Picture Projectionist Apprentice Orthopedic Surgery 06/24/19 Edwin Fuentes MD [address] [place] [address] [place] [address] Consulting Physician Neurology 03/08/24
--- OUTSIDE RECORDS SUMMARY | 2025-03-02 09:47 | XMS_ITS | Clinical Summary ---
Author Organization [facility] Gibran Roman Address [facility] [place] [address] Care Team Providers Care Supervisor Wrapping Room Name Role Phone Unavailable Primary Care Provider [...] Encounters Date Type Department Care Team Description 02/22/2025 External Device Data STL ABSTRACTION Provider, Abstract from Last 3 Months Family History Medical [...] on file Legal Sex Male 12:50 PM HARM REDUCTION WORKER Gender Identity Not on file Sexual Orientation Not on file Last Filed Vital Signs Vital Sign Reading Time Taken Comments Blood Pressure 138/96 06/03/2024 10:34 AM HARM REDUCTION WORKER Pulse 72 06/03/2024 10:30 AM HARM REDUCTION WORKER Temperature 36.2 C (97.2 F) 06/03/2024 10:30 AM HARM REDUCTION WORKER Respiratory Rate 17 06/03/2024 10:30 AM HARM REDUCTION WORKER Oxygen Saturation 97% 06/03/2024 10:30 AM HARM REDUCTION WORKER Inhaled Oxygen Concentration - - Weight 73.3 kg (161 lb 9.6 oz) 06/03/2024 10:30 AM HARM REDUCTION WORKER Height 177.8 cm (5' 10) 06/03/2024 10:30 AM HARM REDUCTION WORKER Body Mass Index 23.19 06/03/2024 10:30 AM HARM REDUCTION WORKER Plan of Treatment Health Maintenance Due Date Last Done Comments HEPATITIS B VACCINES (1 of 3 - 19+ 3-dose series) 07/12/1999 HPV VACCINES (1 - 3-dose SCDM series) 07/12/2007 DTAP/TDAP/TD VACCINES (2 - Td or Tdap) 12/04/2019 INFLUENZA VACCINE (#1) 2024 03/19/2018, 2013 Insurance [facility]
--- OUTSIDE RECORDS SUMMARY | 2025-03-02 09:47 | XMS_ITS | Clinical Summary ---
Author Organization [facility] Address [address] [address] Phone Care Team Providers Care Data Processing Consultant Name Role Phone Eyad Morin MD Primary Care Provider [phone] Allergies Active Allergy Reactions Criticality Noted Date [...] Comments Blood Pressure 116/76 04/29/2023 4:06 PM LEAN ENGINEER Pulse 88 04/29/2023 4:06 PM LEAN ENGINEER Temperature 36.4 C (97.6 F) 04/29/2023 11:54 AM LEAN ENGINEER Respiratory Rate 18 04/29/2023 4:06 PM LEAN ENGINEER Oxygen Saturation 99% 04/29/2023 4:06 PM LEAN ENGINEER Inhaled Oxygen Concentration - - Weight 76.2 kg (168 lb) 04/29/2023 11:54 AM LEAN ENGINEER Height 177.8 cm (5' 10) 04/29/2023 11:54 AM LEAN ENGINEER Body Mass Index 24.11 04/29/2023 11:54 AM LEAN ENGINEER Plan of Treatment Health Maintenance Due Date Last Done Comments Hepatitis C Virus (HCV) Screening 1980 Hepatitis B Immunization (1 of 3 - 19+ 3-dose series) 07/12/1999 Human Papillomavirus (HPV) Immunization (1 - 3-dose SCDM series) 07/12/2007 Influenza Immunization (#1) 01/03/202503/05, 03/19/2018, 02/11/2014, Additional history exists SARS-COV-2 Immunization ( season) 2025 Respiratory Syncytial Virus (RSV) Immunization (Adult) (1 [...] patient's age to complete this topic Insurance OA Care Teams Data Processing Consultant Relationship Specialty Start Date End Date Eyad Morin MD [address] [facility] [address] [place] [id number] PCP - General Plant Taxonomist 04/29/23
[2025-03-02 18:46] LABS: Hematocrit 45.9 % (42.0-52.0); Hemoglobin 15.0 g/dL (14.0-18.0); Immature Granulocyte Percent A 0.2 % (0-0.5); Lymphocytes Absolute Auto 2.28 K/mm3 (0.9-3.2); Mean Corpuscular HGB Conc 32.7 g/dl (32-36); Mean Corpuscular Hemoglobin 29.1 pg (26-34); Mean Corpuscular Volume 89.1 fl (80-100); Nucleated Red Blood Cells Absolute Auto 0.000 K/mm3 (0.0-0.012); Nucleated Red Blood Cells Perc 0.0 % (0.0-0.2); Platelet Count Result 251 k/mm3 (150-375); Red Blood Count 5.15 M/mm3 (4.6-6.20); White Blood Count 5.8 K/mm3 (4.5-10.0)
[2025-03-02 18:55] LABS: Alanine Aminotransferase 70 U/L (6-50); Albumin Level 4.3 g/dL (3.5-5.1); Alkaline Phosphatase 135 U/L (38-126); Anion Gap 7 mmol/L (4-12); Aspartate Amino Transferase 104 U/L (17-59); Bilirubin,Total 0.7 mg/dL (0.2-1.3); Blood Urea Nitrogen 14 mg/dL (9-20); Calcium 9.3 mg/dL (8.4-10.2); Carbon Dioxide 27 mmol/L (22-30); Chloride 105 mmol/L (98-107); Cholesterol 113 mg/dL (0-200); Estimated Glomerular Filt Rate > 60; Glucose 94 mg/dL (65-110); HDL Direct 42 mg/dL; Potassium 3.7 mmol/L (3.4-5.0); Sodium 139 mmol/L (137-145); Total Protein 7.1 g/dL (6.3-8.2); Triglycerides 183 mg/dL (<150)
== END 2025-03-02 09:08 | disposition home or self-care (01) ==
LOC: ANHBWCLAB 09:07
PROVIDERS: PCP Nurse Practitioner Adult Health; Visit Provider Nurse Practitioner Adult Health
DX: E78.5 Hyperlipidemia, unspecified (principal); E55.9 Vitamin D deficiency, unspecified
CPT/HCPCS: 36415; 80053; 80061; 82306; 85025

== ENCOUNTER 2025-03-09 08:21 | Outpatient (CLI) | payer OTHER, SELFPAY ==
--- NOTE | ~2025-03-09 | US_ITS ---
US abdomen limited INDICATION: Abnormal laboratory values PROCEDURE: Realtime right upper abdominal ultrasound. COMPARISON: CT dated 10/10/2005 FINDINGS: The pancreas is normal without focal mass or pancreatic ductal dilation. There is a subtle indistinctly marginated 4.1 cm liver mass right hepatic lobe without internal vascularity. Liver echotexture is increased, consistent with fatty infiltration. There is normal directional flow in the po rtal vein. The gallbladder is normal without stones, gallbladder wall thickening or pericholecystic fluid. Common bile duct measures 4 mm. No sonographic Sandoval's sign. IMPRESSION: 1: Hyperechoic liver mass right hepatic lobe measuring 4.[address] or MRI with contrast recommended. Reviewed, dictated and finalized at location A. ROL CLERK HEAD
== END 2025-03-09 08:22 | disposition home or self-care (01) ==
LOC: GOSHIMG 08:21
PROVIDERS: PCP Nurse Practitioner Adult Health; Visit Provider Nurse Practitioner Adult Health
DX: R93.2 Abnormal findings on diagnostic imaging of liver and biliary tract (principal); R74.8 Abnormal levels of other serum enzymes
CPT/HCPCS: 76705

== ENCOUNTER 2025-04-16 10:59 | Emergency (ER) | payer OTHER, SELFPAY ==
--- NOTE | ~2025-04-16 | XR_ITS ---
Examination: XR ankle RT min 3V, XR foot RT min 3V Clinical History: fell 3 days ago. lateral pain Comparison: None Technique: 4 views right ankle, 4 views right foot Findings/impression: Right ankle: 1. Avulsion fracture distal lateral calcaneus. 2. No other acute abnormality right ankle. Right foot: 1. Avulsion fracture distal lateral calcaneus. 2. No other acute abnormality right foot. Reviewed, dictated and finalized at location R. ATE CLERK
--- OUTSIDE RECORDS SUMMARY | 2025-04-16 11:02 | XMS_ITS | Clinical Summary ---
Author Organization [facility] Address [address] [address] Phone Care Team Providers Care Inventory Specialist Manager Name Role Phone Eyad Morin MD Primary Care Provider [phone] Allergies Active Allergy Reactions Criticality Noted Date [...] Comments Blood Pressure 116/76 04/29/2023 4:06 PM DIRECTOR OF PRODUCT MANAGEMENT Pulse 88 04/29/2023 4:06 PM DIRECTOR OF PRODUCT MANAGEMENT Temperature 36.4 C (97.6 F) 04/29/2023 11:54 AM DIRECTOR OF PRODUCT MANAGEMENT Respiratory Rate 18 04/29/2023 4:06 PM DIRECTOR OF PRODUCT MANAGEMENT Oxygen Saturation 99% 04/29/2023 4:06 PM DIRECTOR OF PRODUCT MANAGEMENT Inhaled Oxygen Concentration - - Weight 76.2 kg (168 lb) 04/29/2023 11:54 AM DIRECTOR OF PRODUCT MANAGEMENT Height 177.8 cm (5' 10) 04/29/2023 11:54 AM DIRECTOR OF PRODUCT MANAGEMENT Body Mass Index 24.11 04/29/2023 11:54 AM DIRECTOR OF PRODUCT MANAGEMENT Plan of Treatment Health Maintenance Due Date Last Done Comments Hepatitis C Virus (HCV) Screening 1980 Varicella Immunization (1 of 2 - 13+ 2-dose series) 1993 Hepatitis B Immunization (1 of 3 - 19+ 3-dose series) 07/12/1999 Influenza Immunization (#1) 01/03/202503/05, 03/19/2018, 02/11/2014, Additional history exists SARS-COV-2 Immunization ( - 2024- season) 2025 Respiratory Syncytial Virus (RSV) Immunization (Adult) (1 - 1-dose 75+ series) 07/12/2055 TdaP Immunization Completed 12/03/2009 Human Papillomavirus (HPV) Immunization (No Doses Required) Completed Meningococcal Immunization (ACWY) Aged Out No longer eligible based on patient's age to complete this topic Pneumococcal Immunization Combined Aged Out No longer eligible based on patient's age to complete this topic Rotavirus Immunization Aged Out No lo nger eligible based on patient's age to complete this topic Insurance OA Care Teams Inventory Specialist Manager Relationship Specialty Start Date End Date Eyad Morin MD [address] [place] [address] [address] [place] [id number] PCP - General Chief Meteorologist 04/29/23
--- OUTSIDE RECORDS SUMMARY | 2025-04-16 11:03 | XMS_ITS | Clinical Summary ---
Author Organization [facility]ibran Roman Address [address] [place] [address] Care Team Providers Care Human Capital Analyst Name Role Phone Unavailable Primary Care Provider [...] Encounters Date Type Department Care Team Description 04/05/2025 External Device Data STL ABSTRACTION Provider, Abstract 03/08/2025 External Device Data STL ABSTRACTION Provider, Abstract 03/02/2025 External Device Data ST[facility] ABSTRACTION Provider, Abstract 03/01/2025 External Device Data ST[facility] ABSTRACTION Provider, Abstract 02/22/2025 External Device Data ST[facility] ABSTRACTION Provider, [...] on file Legal Sex Male 12:50 PM TUBING MILL SETTER Gender Identity Not on file Sexual Orientation Not on file Last Filed Vital Signs Vital Sign Reading Time Taken Comments Blood Pressure 138/96 06/03/2024 10:34 AM TUBING MILL SETTER Pulse 72 06/03/2024 10:30 AM TUBING MILL SETTER Temperature 36.2 C (97.2 F) 06/03/2024 10:30 AM TUBING MILL SETTER Respiratory Rate 17 06/03/2024 10:30 AM TUBING MILL SETTER Oxygen Saturation 97% 06/03/2024 10:30 AM TUBING MILL SETTER Inhaled Oxygen Concentration - - Weight 73.3 kg (161 lb 9.6 oz) 06/03/2024 10:30 AM TUBING MILL SETTER Height 177.8 cm (5' 10) 06/03/2024 10:30 AM TUBING MILL SETTER Body Mass Index 23.19 06/03/2024 10:30 AM TUBING MILL SETTER Plan of Treatment Health Maintenance Due Date Last Done Comments HEPATITIS B VACCINES (1 of 3 - 19+ 3-dose series) 07/12/1999 DTAP/TDAP/TD VACCINES (2 - Td or Tdap) 12/04/2019 INFLUENZA VACCINE (#1) 2024 03/19/2018, 2013 HPV VACCINES (No Doses Required) Completed [place] [address] [place] [address] BENEFIT PLANS
--- OUTSIDE RECORDS SUMMARY | 2025-04-16 11:03 | XMS_ITS | Clinical Summary ---
Author Organization [facility] Address [address] [place] [address] Care Team Providers Care Clamp Carrier Operator Name Role Phone Marcy Thomson Unavailable [phone] Selene Hodges NP Primary Care Provider [phone] Dante Fuentes MD Unavailable [phone] Allergies Active Allergy Reactions Criticality Noted Date [...] 05/15/2023 Assessment & Plan (05/28/2023 5:36 PM VOLUNTEER MANAGER): Chronic abdominal pain. No worrisome signs at this point. I wonder if this is related to his constipation plus multiple musculoskeletal issues. Will re-evaluate next visit. Chronic constipation 05/15/2023 Assessment & Plan (08/24/2023 6:03 PM CDT): Doing well overall. Continue Milk of Magnesia daily or as needed. Assessment & Plan (05/28/2023 5:37 PM VOLUNTEER MANAGER): Start milk of magnesium daily. Stop dicyclomine and tramadol. Cqtu-kax-dosiigb glycerin suppositories. Schedule colonoscopy. Follow up after the colonoscopy. Rectal pain 05/15/2023 Assessment & Plan (05/28/2023 5:37 PM VOLUNTEER MANAGER): Patient complains of hemorrhoid problems. We will re-evaluate during the colonoscopy. History of kidney stones 03/20/2023 Mixed hyperlipidemia 03/20/2023 Assessment & Plan (05/06/2023 9:43 AM VOLUNTEER MANAGER): Lab Results Component Value Date CHOL [...] (06/14/2019): Added automatically from request for surgery [id number] Impingement syndrome of left shoulder 06/14/2019 Overview (06/14/2019): Added automatically from request for surgery [id number] Arthritis of left acromioclavicular joint 2019 Overview (06/14/2019): Added automatically from request for surgery [id number] Neuropathy, arm, left 06/30/2017 Elevated LFTs 06/09/2017 Cervicalgia 11/11/2016 Prolonged posttraumatic stress disorder 10/18/19 17 Panic attack as reaction to stress 08/12/2016 Depression 05/17/2016 Anxiety 05/09/2016 Assessment & Plan (03/20/2023 1:35 PM VOLUNTEER MANAGER): [facility] - currently [facility] to [facility] Also taking clonidine for sleep but it doesn't seem to help Gastroesophageal reflux disease without esophagi tis 05/09/2016 Insomnia 05/09/2016 Kidney stones 05/09/2016 Assessment & Plan (03/20/2023 1:33 PM VOLUNTEER MANAGER): Has hx of stones But also hx and famil history of hematuria Recurrent pain of right knee 05/09/2016 Overview (01/30/2017): Overview: Dr Wayne History of steroid shots Low back pain 04/27/2015 Overview (08/08/2016): Lumbago Assessment & Plan (05/06/2023 9:41 AM VOLUNTEER MANAGER): Worsening sx Start flexeril Xray now [...] Encounters Date Type Department Care Team Description 03/25/2025 Telephone Radiology [address] [place] [address] Johanna Clancy PA 03/18/2025 3:15 PM VOLUNTEER MANAGER Ancillary Procedure [facility] Medicine Vascular Lab at the [address] [place] [address] [place] [address] CVA (cerebrovascular accident due to intracerebral hemorrhage) 03/11/2025 Orders Only [facility] Neuro Interventional Radiology [address] [place] [address] Kiana Desai CVA (cerebrovascular accident due to intracerebral hemorrhage) (Primary Dx) 03/11/2025 Orders Only [facility] Neuro Interventional Radiology [address] [place] [address] Kiana Desai Cerebrovascular accident (CVA), unspecified mechanism (HCC) (Primary Dx) 01/17/2025 1:00 PM CDT Office Visit [facility] Medicine Orthopaedic Surgery [address]th [place] [address] [place] [address] Tam Dubon MD PhD H/O ischemic right [...] works f or me; last sleep study 2018 Stroke (HCC) Family [...] = 0.6 oz pur e alcohol) occasionally [employer] Util[employer] Answer Date Recorded In the past 12 months has e [employer], gas, oil, or water [id number] threatened to shut off services in your [...] How often do you attend chur or moravian services? More than 4 times per year 03/18/2024 Do you belong to any clubs o r organizations such as tenriism groups, unions, fraternal or athletic groups, or [...] staff should administer the PHQ-9) 1 03/18/2024 [facility] - Occupational [...] any time in the past 12 m [facility], were you homeless or living in a retirement (including now)? No 03/18/2024 Personal Safety Answer [...] on file Legal Sex Male 5:28 PM VOLUNTEER MANAGER Gender Identity Not on file Sexual [...] this topic Medical Devices Implanted Type Area Land Development Project Manager Device Identifier Shelf Expiration Date Model / Serial / Lot Kit Implant Mobi-C Titanium Cocrmo Uhmwpe Lopez D15 Mm W17 Mm X H5 Mm Cervical Spinal Plate Insert Disk - Sref [id number] - [id number] Implanted:Qty: 1 on 06/30/2017 by David Simmons MD at [facility] Other - see comments N/A: Cervical-Melany mbar Spine Jose Enrique Spine 10/03/2021 [id number] / [id number] [id number] / [id number] Description:Mobi-c Cervical Disc Prosthesis Titanium Screw Distraction [place] L14 Mm Cervical Pin Sterile - [id number] Implanted:Qty: 1 on 06/30/[address] [facility] Jose Enrique [employer] Inc 03/03/2020 0024-LDR / / [id number] Arthrex Inc Ar-8990st Arthrex Dx Fibertak Needle [place] Suture Sterile Latex Free - [id number] Implanted:Qty: 1 on 06/24/2019 by Kevin Appiah MD at [facility] Left: Shoulder Arthrex Inc 05/04/2024 AR-8990S T / / [id number] Medtronic Inc Protege Gps Exprt 10/7mm 6fr 40mm 135cm Rapid Exchange Self Nfax-47-9-40-1 35 - [id number] Implanted:Qty: 1 on 12/01/2023 at [facility] Medtronic Inc 03/11/2024 SECX-10- 7-40-135 / / [id number] [facility] Angio-Seal Vip Bondek-Plus 8fr .038in 70cm Hemostatic Latex Free [id number] - [id number] Implanted:Qty: 1 on 12/01/2023 at [facility] Hoffmeister Leuchten 08/18/2024 [id number] / / [id number] Explanted Type Area Land Development Project Manager Device Identifier Shelf Expiration Date Model / Serial / Lot Pin Distraction [place] L12 Mm Self Drill Sterile Cervical Distractor System - [id number] Explanted:Qty: 1 on 06/30/2017 at [facility] Implant Systems [id number] / / Pin Distraction [place] L12 Mm Self Drill Sterile Cervical Distractor System - [id number] Explanted:Qty: 1 on 06/30/2017 at [facility] Implant Systems [id number] / / Procedures Procedure Name Priority Date/Time Associated Diagnosis Comments US CAROTIDS DUPLEX BILATERAL Schedule Routine, Read Routine (OP Routine) 03/18/2025 4:05 PM VOLUNTEER MANAGER CVA (cerebrovascular accident due to intracerebral hemorrhage) from Last 3 Months Results * US Carotids Duplex Bilateral (03/18/2025 4:05 PM VOLUNTEER MANAGER) Anatomical Region Laterality Modality Vascular Bilateral Ultrasound 03/18/2025 2:48 PM VOLUNTEER MANAGER Narrative 03/24/2025 2:25 PM VOLUNTEER MANAGER [facility] - Department of Vascular Surgery, Vascular Laboratory [address] [place] [address] Carotid Duplex Ultrasound Report Patient Name: DANTE LOPEZ : 1980 (44y 8m) Study Date: 03/18/2025 2:48:44 PM Sex: M Tech: Location: [facility] Ref Provider: PIO HERNANDEZ Quality: Adequate Order Provider: PIO HERNANDEZ PROCEDURES: Carotid Report: Carotid duplex examination of the extracranial arteries was performed using 2D, color and spectral Doppler. INDICATIONS: I61.9 Nontraumatic intracerebral hemorrhage, unspecified. MEASUREMENTS: Right Value Units Left Value Units RT Prox CCA PSV 138 cm/sec LT Prox CCA PSV 149 cm/sec RT Prox CCA EDV 27 cm/sec LT Prox CCA EDV 34 cm/sec RT Distal CCA PSV 139 cm/sec LT Distal CCA PSV 113 cm/sec RT Distal CCA EDV 34 cm/sec LT Distal CCA EDV 31 cm/sec RT Prox ICA PSV 77 cm/sec LT Prox ICA PSV 163 cm/sec RT Prox ICA EDV 34 cm/sec LT Prox ICA EDV 32 cm/sec RT Mid ICA PSV 78 cm/sec LT Mid ICA PSV 69 cm/sec RT Mid ICA EDV 34 cm/sec LT Mid ICA EDV 34 cm/sec RT Distal ICA PSV 75 cm/sec LT Distal ICA PSV 73 cm/sec RT Distal ICA EDV 33 cm/sec LT Distal ICA EDV 33 cm/sec RT ECA Prx PSV 154 cm/sec LT ECA Prx PSV 96 cm/sec RT ICA/CCA 0.60 ratio LT ICA/CCA 1.40 ratio RT VERT PSV 50 cm/sec LT VERT PSV 50 cm/sec FINDINGS: Performing Rn Recovery: Demi Mcpherson RDMS, RVT Haylie Delgado (student). Rt Common Carotid Artery: Duplex imaging of the right common carotid artery is within normal limits without evidence of atherosclerotic disease. Rt Internal Carotid Artery: Duplex imaging [...] limits without evidence of atherosclerotic disease. Lt Internal Carotid Artery: Duplex imaging of the left internal carotid artery is within normal limits without evidence of atherosclerotic disease. Lt External Carotid Artery: The left external carotid artery is patent without evidence of atherosclerotic plaque. Lt Vertebral Artery: The left vertebral artery is patent with antegrade flow. Comments: Right distal ICA stent is patent as visualized (partially visualized). CONCLUSIONS: 1. No evidence of hemodynamically significant disease of the bilateral extracranial carotid system. 2. No evidence of hemodynamically significant stenosis in the common carotid artery bilaterally. 3. Normal, antegrade flow is noted in bilateral vertebral arteries. 4. Right distal ICA stent is patent as visualized (partially visualized). 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 Normal right internal carotid artery, no evidence of significant plaque. 2. Normal left internal carotid artery, no evidence of significant plaque. 3. Elevated bilateral common carotid artery velocity as noted above with no evidence of significant atherosclerosis disease. 4. Normal, antegrade flow is noted in bilateral vertebral arteries. - DISCLAIMER: The study images and the final [...] that is provided above. Electronically Signed By: Mitch Serrano MD [facility] [phone] 03/24/2025 2:05:12 PM VOLUNTEER MANAGER Procedure Note Mitch Serrano MD - 03/24/2025 [facility] - Department of Vascular Surgery,Vascular Laboratory [address] [place] [address] Carotid Duplex Ultrasound Report Patient Name: DANTE LOPEZ : 1980 (44y 8m) Study Date: 03/18/2025 2:48:44 PM Sex: M Tech: Location: [facility] Provider: PIO HERNANDEZ Quality: Adequate Order Provider: PIO HERNANDEZ PROCEDURES: Carotid Report: Carotid duplex examination of the extracranial arterieswas performed using 2D, color and spectral Doppler. INDICATIONS: I61.9 Nontraumatic intracerebral hemorrhage, unspecified. MEASUREMENTS: Right Value Units Left Value Units RT Prox CCA PSV 138 cm/sec LT Prox CCA PSV 149 cm/sec RT Prox CCA EDV 27 cm/sec LT Prox CCA EDV 34 cm/sec RT Distal CCA PSV 139 cm/sec LT Distal CCA PSV 113 cm/sec RT Distal CCA EDV 34 cm/sec LT Distal CCA EDV 31 cm/sec RT Prox ICA PSV 77 cm/sec LT Prox ICA PSV 163 cm/sec RT Prox ICA EDV 34 cm/sec LT Prox ICA EDV 32 cm/sec RT Mid ICA PSV 78 cm/sec LT Mid ICA PSV 69 cm/sec RT Mid ICA EDV 34 cm/sec LT Mid ICA EDV 34 cm/sec RT Distal ICA PSV 75 cm/sec LT Distal ICA PSV 73 cm/sec RT Distal ICA EDV 33 cm/sec LT Distal ICA EDV 33 cm/sec RT ECA Prx PSV 154 cm/sec LT ECA Prx PSV 96 cm/sec RT ICA/CCA 0.60 ratio LT ICA/CCA 1.40 ratio RT VERT PSV 50 cm/sec LT VERT PSV 50 cm/sec FINDINGS: Performing Rn Recovery: Demi Mcpherson RDMS, T Haylie Delgado (student). Rt Common Carotid Artery: Duplex imaging of the right common carotidartery is within normal limits without evidence of atherosclerotic disease. Rt Internal Carotid Artery: Duplex imaging [...] limits without evidence of atherosclerotic disease. Lt Internal Carotid Artery: Duplex imaging of the left internal carotidartery is within normal limits without evidence of atherosclerotic disease. Lt External Carotid Artery: The left external carotid artery is patentwithout evidence of atherosclerotic plaque. Lt Vertebral Artery: The left vertebral artery is patent with antegradeflow. Comments: Right distal ICA stent is patent as visualized (partiallyvisualized). CONCLUSIONS: 1. No evidence of hemodynamically significant disease of the bilateralextracranial carotid system. 2. No evidence of hemodynamically significant stenosis in the commoncarotid artery bilaterally. 3. Normal, antegrade flow is noted in bilateral vertebral arteries. 4. Right distal ICA stent is patent as visualized (partiallyvisualized). 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 Normal right internal carotid artery, no evidence of significantplaque. 2. Normal left internal carotid artery, no evidence of significantplaque. 3. Elevated bilateral common carotid artery velocity as noted above withno evidence of significant atherosclerosis disease. 4. Normal, antegrade flow is noted in bilateral vertebral arteries. - DISCLAIMER: The study images and the final report will be retained in the patientchart by the Vascular Laboratory for the legally required time period. This chartconstitutes the legal record of any testing performed. ATTESTATION: I have reviewed and interpreted the pertinent images and measurements ofthis study. I attest to the conclusions in the final report that is provided above. Electronically Signed By: Mitch Serrano MD [facility] [phone] 03/24/2025 2:05:12 PM VOLUNTEER MANAGER Pio Hernandez MD [facility] PROCEDURES Fin al Result from Last 3 Months Insurance [facility] [id number] [facility] [id number] Advance Directives For more information, please contact: [phone] * Full Code (Latest Code Status on [...] 11:03 AM 06/19/2023 4:59 PM Care Teams Clamp Carrier Operator Relationship Specialty Start Date End Date Selene Hodges NP [facility] [place] [address] PCP - General Nurse Practitioner 03/04/24 Marcy Thomson PA Physician Activities Counselor Orthopedic Surgery 06/24/19 Dante Fuentes MD [address] [place] [address] [address] [place] [address] Consulting Physician Neurology 03/08/24
[2025-04-16 11:15] VITALS: BP 111/70; PULSE 64; RESP 18; TEMP 36.5; O2SAT 99
--- NOTE | 2025-04-16 11:59 | ED_ITS ---
HPI - Extremity Injury (Lower) General Chief Complaint: Extremity Injury, Lower Stated Complaint: Right foot/ankle injury Time Seen by Provider: 04/16/25 11:51 Source: patient, family and RN notes reviewed Mode of arrival: wheelchair Limitations: no limitations History of Present Illness HPI Narrative: 44-year-old male patient presents today complaining of right foot and ankle pain. Three days ago he tripped and fell at home injuring the area. He fell again yesterday re-injuring it. Reports some tingling in the toes and decreased range of motion of the ankle as well. Currently rates his pain 11/11. He has wrap the area but has not applied ice or taken any OTC medication for symptoms. Related Data Allergies Allergy/AdvReac Type Severity Reaction Status Date / Time bupropion (From Wellbutrin) Allergy Other Verified 04/16/25 11:17 ibuprofen Allergy Hives Verified 04/16/25 11:17 PMFSH Past Medical History Medical History CVA (cerebral vascular accident) Anxiety COVID-19 Family History Family History Grandparent Heart disease Social History Social History Smoking status: Never smoker Smokeless tobacco user: chewing tobacco Alcohol intake: never Substance use type: does not use Lack of Transportation: No Lack of Food: Never True Current Housing: I Have Housing Concerned About Future Housing: No Difficulty Paying Gas/Electric Bills: No Difficulty Paying for Meds: No Currently Unemployed: No Education: Associate Degree Difficulty w/ Childcare or Family Care: No Living arrangements: with family Additional occupation/education comments: Disabled Gender identity (if verbalized by the patient): Male Agree to blood products: No Comments At time of signature, I have reviewed and agree with nursing past medical, surgical, social and family history unless otherwise noted. Please see nursing chart for further information. There is no relevant family history pertinent to the presenting complaint Exam Narrative: GENERAL: Well-appearing, well-nourished, and in no acute distress. HEAD: Normocephalic, atraumatic. EYES: EOMI. No redness or drainage. Conjunctivae normal. ENT: Mucous membranes pink and moist.. NECK: Normal AROM. CHEST: No respiratory distress. EXTREMITIES: Right ankle and foot: Mild swelling about the lateral ankle and foot with mild to moderate ecchymosis and tenderness to palpation. Distal sensation intact in all 5 toes. Capillary refill normal. Pedal pulse normal. Decreased active range of motion of the ankle due to pain and swelling SKIN: Warm, dry, no rash. Capillary refill normal. Normal skin turgor. NEURO: No focal deficits. Alert and oriented x3. Gait steady. PSYCH: Normal affect. No signs of depression or anxiety. Course Course Level of Care: Express Care Visit Vital Signs Vital signs: Vital Signs Temperature 97.7 F 04/16/25 11:15 Pulse Rate 64 04/16/25 11:15 Respiratory Rate 18 04/16/25 11:15 Blood Pressure 111/70 04/16/25 11:15 Pulse Oximetry 99 04/16/25 11:15 Oxygen Delivery Room Air 04/16/25 11:15 Temperature 97.7 F 04/16/25 11:15 Pulse Rate 64 04/16/25 11:15 Respiratory Rate 18 04/16/25 11:15 Blood Pressure 111/70 04/16/25 11:15 Pulse Oximetry 99 04/16/25 11:15 Oxygen Delivery Room Air 04/16/25 11:15 Reviewed MDM MDM Narrative Medical decision making narrative: 44-year-old male patient presents today complaining of right foot and ankle pain. Three days ago he tripped and fell at home injuring the area. He fell ag ain yesterday re-injuring it. Reports some tingling in the toes and decreased range of motion of the ankle as well. Currently rates his pain 7/10. He has wrap the area but has not applied ice or taken any OTC medication for symptoms. Upon exam, Mild swelling about the lateral ankle and foot with mild to moderate ecchymosis and tenderness to palpation. Neurovascularly intact. X-ray shows avulsion fracture distal lateral calcaneus. Mert wrap applied. Recommend ice, compression elevation, and Tylenol with orthopedic follow-up in 7-10 days if symptoms persist. Patient agrees with plan. Vital signs stable. Anticipatory guidance given. Differential Diagnosis Differential Diagnosis: Fracture, sprain, contusion Imaging Data Radiologist's impression: Findings/impression: Right ankle: 1. Avulsion fracture distal lateral calcaneus. 2. No other acute abnormality right ankle. Right foot: 1. Avulsion fracture distal lateral calcaneus. 2. No other acute abnormality right foot. Reviewed, dictated and finalized at location R. SLATIVE AIDE Critical Care Time Critical Care Time Critical Care Time: No Discharge Plan Discharge Clinical Impression: Avulsion fracture of calcaneus, Right foot sprain Patient Disposition: Home Condition: Stable Instructions: Foot Sprain (ED), P.R.I.C.E. Treatment (ED) Additional Instructions: Wear the Mert wrap for comfort and compression. Elevate and ice the foot and ankle. Take Tylenol for discomfort. Follow-up with orthopedics in 7-10 days if symptoms are not improving. Patient Language: Nicaraguan Prescriptions: No Action mirtazapine 15 mg tablet See Rx Instructions .ROUTE .COMPLEX Qty: 90 3RF Dose Instruction: TAKE 1 TABLET BY MOUTH ONCE DAILY AT BEDTIME Rx Instructions: TAKE 1 TABLET BY MOUTH ONCE DAILY AT BEDTIME aspirin 81 mg tablet,delayed release (DR/EC) 81 mg PO DAILY Qty: 90 3RF cholecalciferol (vitamin D3) 10 mcg (400 unit) capsule 20 mcg PO DAILY Qty: 90 3RF ticagrelor 60 mg tablet See Rx Instructions .ROUTE .COMPLEX Qty: 180 3RF Dose Instruction: TAKE 1 TABLET BY MOUTH EVERY 12 HOURS Rx Instructions: TAKE 1 TABLET BY MOUTH EVERY 12 HOURS fluoxetine 40 mg capsule See Rx Instructions .ROUTE .COMPLEX Qty: 90 3RF Dose Instruction: Take 1 capsule by mouth once daily Rx Instructions: Take 1 capsule by mouth once daily alprazolam 0.5 mg tablet 0.5 mg PO DAILY PRN (Reason: anxiety) Qty: 30 1RF atorvastatin 40 mg tablet 40 mg PO QHS Qty: 90 3RF Follow-up/Referrals: Davon Garza MD [Physician, Orthopedics] Selene Hodges APRN [Primary Care Provider, [facility]] Time of Disposition: 12:10
== END 2025-04-16 12:19 | disposition home or self-care (01) ==
PROVIDERS: Emergency Provider Nurse Practitioner; PCP Nurse Practitioner Adult Health
DX: S92.001A Unspecified fracture of right calcaneus, initial encounter for closed fracture (principal); S93.601A Unspecified sprain of right foot, initial encounter; W01.0XXA Fall on same level from slipping, tripping and stumbling without subsequent striking against object, initial encounter; F17.220 Nicotine dependence, chewing tobacco, uncomplicated; F41.9 Anxiety disorder, unspecified; Z86.73 Personal history of transient ischemic attack (TIA), and cerebral infarction without residual deficits; Z86.16 Personal history of COVID-19; Z79.82 Long term (current) use of aspirin
CPT/HCPCS: 73610; 73630; 99214; G0463

== ENCOUNTER 2025-04-24 09:45 | Outpatient (CLI) | payer OTHER, SELFPAY ==
--- NOTE | ~2025-04-24 | MR_ITS ---
EXAMINATION: MR abdomen wo/w con DATE: 04/24/2025 11:05 INDICATION: Abnormal levels of other serum enzymes. TECHNIQUE: Magnetic resonance imaging (MRI) of the abdomen was performed without and with 17 mL MultiHance intravenous contrast. COMPARISON: CT abdomen and pelvis 10/10/2005 FINDINGS: There is a 4.2 cm mass in right hepatic lobe with interrupted peripheral puddling of contrast, consistent with a hemangioma. There is a 9 mm hyperenhancing mass in right hepatic lobe, likely a hemangioma. There is a 1.5 cm arterially hyperenhancing mass in right hepatic lobe that is occult on other sequences, likely focal nodular hyperplasia. There is a 7 mm cyst in the liver. The gallbladder, spleen, pancreas, adrenal glands, and right kidney are normal. There are cysts in left kidney measuring up to 5 mm. There are no dilated loops of bowel. IMPRESSION: 1. Multiple hyperenhancing liver masses, likely hemangiomas and focal nodular hyperplasia. Reviewed, dictated and finalized at location E. NURSE IMPRESSION: 1. Multiple hyperenhancing liver masses, likely hemangiomas and focal nodular h yperplasia.
== END 2025-04-24 09:46 | disposition home or self-care (01) ==
PROVIDERS: PCP Nurse Practitioner Adult Health; Visit Provider Nurse Practitioner Adult Health
DX: K76.9 Liver disease, unspecified (principal); R74.8 Abnormal levels of other serum enzymes
CPT/HCPCS: 74183; A9577